=== PATIENT | female | born 1955 | race Caucasian/White ===

== ENCOUNTER → 2017-06-12 | Outpatient (CLI) | payer OTHER ==
--- NOTE | 2017-06-12 22:07 | Diagnostic Imaging Report ---
Bilateral diagnostic mammogram. INDICATION: Lump in the right breast inferior aspect. The current study was also evaluated with a Computer Aided Detection (CAD) system. Tomography was also performed. Comparison exam reviewed on 12/14/15. FINDINGS: The breasts are composed of scattered fibroglandular densities. Occasional benign-appearing calcifications are seen. There is no mass, architectural distortion or suspicious cluster of calcification. The area marked for palpable lump demonstrate no definite underlying abnormality. IMPRESSION: No mammographic evidence of malignancy. Ultrasound evaluation is pending. ACR BI-RADS Category 0: Incomplete. (Needs additional imaging evaluation). Result letter will be mailed to the patient. Note: At least 10% of breast cancer is not imaged by mammography. Dictated by: Dictated on workstation # [id number]
--- NOTE | 2017-06-12 22:10 | Diagnostic Imaging Report ---
Right breast ultrasound. INDICATION: Right breast lump. FINDINGS: The right breast lump area around 6 o'clock zone is scanned with no underlying abnormality seen. IMPRESSION: Negative study. Clinical followup of the palpable area is recommended. ACR BI-RADS Category 1: Negative. Dictated by: Dictated on workstation # [id number]
== END ==
LOC: RAD 08:36
PROVIDERS: ATTEND Nurse Practitioner Family
DX: Z12.31 Encounter for screening mammogram for malignant neoplasm of breast (principal); N63.10 Unspecified lump in the right breast, unspecified quadrant
CPT/HCPCS: 77066

== ENCOUNTER → 2017-09-24 | Outpatient (CLI) | payer OTHER ==
[~2017-09-24] MED LIST: IOHEXOL 350 MG/ML 100 ML (OMNIPAQUE 350) VIAL IV ONE; NS 250 ML (IVPB) BAG IV ONE
--- NOTE | 2017-09-24 15:03 | Diagnostic Imaging Report ---
PROCEDURE: CT abdomen and pelvis with contrast. TECHNIQUE: Multiple contiguous axial images were obtained through the abdomen and pelvis after administration of intravenous contrast. INDICATION: Abdominal cramping and diarrhea. No prior studies are available for comparison. FINDINGS: Imaging through the lung bases does demonstrate some atelectasis or scarring in the right middle lobe and lingula. The lower lobes are clear. The liver demonstrates generalized low density consistent with hepatic steatosis. No discrete liver mass is identified. Gallbladder does contain probable small stones or sludge. The pancreas and spleen are unremarkable. No adrenal mass is identified. There is a tiny hyperdensity in the upper pole of the right kidney suggestive of a nonobstructing calculus. There are also small low densities within bilateral kidneys consistent with cysts. Aorta is calcified but nonaneurysmal. There are diverticuli throughout the colon, most significant in the descending colon and sigmoid. No findings to suggest acute diverticulitis are identified. There are some moderately dilated and fluid-filled small bowel loops in the left abdomen and pelvis. There is a long segment of significant circumferential wall thickening involving small bowel loops in the left abdomen. There is perienteric inflammatory stranding present as well. The features are consistent with a nonspecific enteritis. There may be a component of mild bowel obstruction. No free fluid is seen. There is no abscess formation. No pneumoperitoneum is identified. The bladder is unremarkable. No abdominal or pelvic lymphadenopathy is identified. IMPRESSION: 1. Hepatic steatosis. 2. Long segment of circumferential wall thickening involving small bowel loops in the left abdomen with adjacent inflammatory stranding. Small bowel loops proximal to this are moderately dilated and fluid-filled. Features are consistent with nonspecific enteritis with perhaps component of small bowel obstruction. No abscess formation or free air is identified. Results were discussed with Dr. Michelle Lopez prior to this dictation. Dictated by: Dictated on workstation # [id number]
== END ==
LOC: RAD 13:51
PROVIDERS: ATTEND Family Medicine
DX: K76.0 Fatty (change of) liver, not elsewhere classified (principal); K63.89 Other specified diseases of intestine
CPT/HCPCS: 74177

== ENCOUNTER 2017-12-26 12:45 | Outpatient (CLI) | payer SELFPAY ==
[~2017-12-26] VITALS: Ht 160 cm; Wt 68.0 kg
[2017-12-26] MEDS ORDERED: LORA0.5T PO (12:54)
[2017-12-26] MEDS ORDERED: DICY20TA10 PO (12:54)
[2017-12-26] MEDS ORDERED: ALPR0.5T7 PO (12:54)
[2017-12-26] MEDS ORDERED: RT-ALBUINH IH (12:54)
[2017-12-26] MEDS ORDERED: AMIT25TA9 PO (12:54)
[2017-12-26] MEDS ORDERED: FLUO40CA PO (12:54)
== END 2017-12-26 12:59 ==
LOC: PREOP 12:45
PROVIDERS: ATTEND Surgery
DX: Z01.818 Encounter for other preprocedural examination (principal); K21.9 Gastro-esophageal reflux disease without esophagitis; R19.7 Diarrhea, unspecified

== ENCOUNTER 2017-12-30 12:48 | Day surgery (SDC) | payer OTHER ==
[~2017-12-30] VITALS: Ht 160 cm; Wt 68.0 kg
[~2017-12-30 12:48] MED LIST changes: +ALPR0.5T7 PO; +AMIT25TA9 PO; +DICY20TA10 PO; +FLUO40CA PO; -IOHEXOL 350 MG/ML 100 ML (OMNIPAQUE 350) VIAL IV ONE; +LORA0.5T PO; -NS 250 ML (IVPB) BAG IV ONE; +RT-ALBUINH IH
--- OUTSIDE RECORDS SUMMARY | 2017-12-30 12:52 | XMS REPORT ---
Author Author STEPHANIE ANDERSON [facility] Address [address] [place] [address] Care Team Providers Care Abatement Worker Name Role Phone STEPHANIE ANDERSON Unavailable PROBLEMS Type Condition ICD9-CM Code [id number] Code Onset Dates Condition Status SNOMED Code Problem Irritable bowel syndrome, unspecified type K58.9 Active 44624599 Problem Moderate episode of recurrent major depressive disorder F33.1 Active 79653281 Problem Moderate single current episode of major depressive disorder F32.1 Active 77171396 Problem Stress incontinence N39.3 Active 51598457 Problem Other iron deficiency anemia D50.8 Active 94057213 Problem Mixed simple and mucopurulent chronic bronchitis J41.8 Active 177796777 Problem Esophageal dysphagia R13.10 Active 25975740 Problem Tobacco use Z72.0 Active 004799383 Problem 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 Active 587587552 Problem Primary insomnia F51.01 Active 3833377 Problem Anxiety F41.9 Active 70793770 Problem COPD (chronic obstructive pulmonary disease) with chronic bronchitis J44.9 Active 418007691 ALLERGIES No Known Allergies ENCOUNTERS Encounter Location Date Diagnosis [facility] [address] [address] November, Anxiety F41.9 and LLQ abdominal pain R10.32 [facility] [id number] [place] [address] Oct, Anxiety F41.9 [facility] [id number] [place] [address] Oct, Allergic contact dermatitis, unspecified trigger L23.9 [facility] [address], [place] [address] Sep, [facility] [id number] [address] Sep, [facility] [id number] [place] [address] Aug, COPD (chronic obstructive pulmonary disease) with chronic bronchitis J44.9 ; Left lower quadrant pain R10.32 ; Anxiety F41.9 and Tobacco use Z72.0 [facility] [id number] [place] [address] Aug, [facility] [id number] [place] [address] 29832- 6866 Aug, [facility] [id number] [place] [address] 75551- 6631 Aug, Generalized abdominal pain R10.84 and Esophageal dysphagia R13.10 [facility] [id number] [place] [address] 60606- 4292 Jul, [facility] [id number] [place] [address] 14833- 5190 Jun, COPD (chronic obstructive pulmonary disease) with chronic bronchitis J44.9 [facility] [id number] [place] [address] 78790- 4034 May, [facility] [place] [facility] [id number] [place] [id number] May, Dental examination Z01.20 [facility] [address] [place] [address] 96790- 8200 Apr, Breast cancer screening Z12.31 [facility] [address] [place] [address] 87699- 3346 Apr, Dental examination Z01.20 [facility] [id number] [place] [address] 83681- 4073 Apr, COPD (chronic obstructive pulmonary disease) with chronic bronchitis J44.9 ; Screening for breast cancer Z12.31 ; Moderate episode of recurrent major depressive disorder F33.1 ; Primary insomnia F51.01 ; 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 ; Other specified disorders of teeth and supporting structures K08.89 and Encounter for immunization Z23 [place] [address] [address] Jan, Mixed simple and mucopurulent chronic bronchitis J41.8 ; Other iron deficiency anemia D50.8 ; Irritable bowel syndrome, unspecified type K58.9 and Stress incontinence N39.3 [place] [address] [address] 03 Jan, 2017 Mixed simple and mucopurulent chronic bronchitis J41.8 ; Stress incontinence N39.3 ; Moderate single current episode of major depressive disorder F32.1 ; Irritable bowel syndrome, unspecified type K58.9 ; Other iron deficiency anemia D50.8 and Chronic intractable headache, unspecified headache type R51 [place] [address] [address] Dec, [place] [address] [address] Dec, [place] [address] [address] 13 Dec, 2016 Acute left-sided thoracic back pain M54.6 ; Rib pain on left side R07.81 and Closed fracture of one rib of left side, initial encounter S22.32XA IMMUNIZATIONS No Known Immunizations SOCIAL HISTORY Never Assessed REASON FOR VISIT Breast exam and [facility] Activity Details Follow Up 1 Year, sooner prn Reason: VITAL SIGNS Height 62.5 in 2017-05-27 Weight 145.2 lbs 2017-05-27 Temperature 98.1 degrees Fahrenheit 2017-05-27 Heart Rate 76 bpm 2017-05-27 Respiratory Rate 20 2017-05-27 BMI 26.13 kg/m2 2017-05-27 Blood pressure systolic 140 mmHg 2017-05-27 Blood pressure diastolic 84 mmHg 2017-05-27 MEDICATIONS Medication Instructions Dosage Frequency Start Date End Date Duration Status Xanax 1 MG Orally TID PRN 1 tablet Active Amitriptyline HCl 25 MG Orally Once a day 1 tablet 24h Jan, 90 days Active Fluoxetine HCl 40 MG Orally Once a day 1 capsule 24h Active Docusate Sodium Active Proventil HFA 108 (90 Base) MCG/ACT Inhalation every 4 hrs 2 puffs as needed 4h Active Dicyclomine HCl 20 mg Orally Four times a day 1 tablet 6h Active RESULTS Name Result Date Reference Range Mammogram Dx, Bilateral 2017-06-12 PROCEDURES No Known procedures INSTRUCTIONS MEDICATIONS ADMINISTERED No Known Medications MEDICAL (GENERAL) HISTORY Type Description Date Medical History Depression Medical History Anxiety Medical History COPD Surgical History Hiatal hernia repair 2013 Surgical History hysterectomy, laparoscopically assisted complete 2013 Hospitalization History past surgery/child
--- OUTSIDE RECORDS SUMMARY | 2017-12-30 12:52 | XMS REPORT ---
Author Author GUILLERMO Block Organization [facility] Address [address] [place] [address] Care Team Providers Care Wood Model Maker Name Role Phone Mckayla GUILLERMO Unavailable PROBLEMS Type Condition ICD9-CM Code [id number] Code Onset Dates Condition Status SNOMED Code Problem Irritable bowel syndrome, unspecified type K58.9 Active 50043360 Problem Moderate episode of recurrent major depressive disorder F33.1 Active 70684902 Problem Moderate single current episode of major depressive disorder F32.1 Active 22129900 Problem Stress incontinence N39.3 Active 10268571 Problem Other iron deficiency anemia D50.8 Active 79679840 Problem Mixed simple and mucopurulent chronic bronchitis J41.8 Active 856081071 Problem Esophageal dysphagia R13.10 Active 21521371 Problem Tobacco use Z72.0 Active 238032265 Problem 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 Active 625870572 Problem Primary insomnia F51.01 Active 7938759 Problem Anxiety F41.9 Active 66828943 Problem COPD (chronic obstructive pulmonary disease) with chronic bronchitis J44.9 Active 523686071 ALLERGIES No Information ENCOUNTERS Encounter Location Date Diagnosis [facility] [address] [place] [address] Sep, [facility] [address] [place] [address] 50035- 7[address] Sep, [facility] [id number] [place] [address] 50974[address] Aug, COPD (chronic obstructive pulmonary disease) with chronic bronchitis J44.9 ; Left lower quadrant pain R10.32 ; Anxiety F41.9 and Tobacco use Z72.0 [facility] [address] [place] [address] 29273- [address] Aug, [facility] [id number] [place] [address] 89528- 40[address] Aug, [facility] [id number] [place] [address] 54132- 97[address] Aug, Generalized abdominal pain R10.84 and Esophageal dysphagia R13.10 [place] [address] [address] Jul, [facility] [id number] [place] [address] 93828- [address]689 Jun, COPD (chronic obstructive pulmonary disease) with chronic bronchitis J44.9 [place] [id number] [place] [address] 31751- [address] May, [facility] [address] [id number] May, Dental examination Z01.20 [place] [address] [address]- [address] Apr, Breast cancer screening Z12.31 [place] [id number] [place] [address] 08087- 6631 Apr, Dental examination Z01.20 [place] [id number] [place] [address] 82644- 4761 24 Apr, 2017 COPD (chronic obstructive pulmonary disease) with chronic bronchitis J44.9 ; Screening for breast cancer Z12.31 ; Moderate episode of recurrent major depressive disorder F33.1 ; Primary insomnia F51.01 ; 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 ; Other specified disorders of teeth and supporting structures K08.89 and Encounter for immunization Z23 [place] [id number] [place] [address] Jan, Mixed simple and mucopurulent chronic bronchitis J41.8 ; Other iron deficiency anemia D50.8 ; Irritable bowel syndrome, unspecified type K58.9 and Stress incontinence N39.3 [place] [address] [address] 03 Jan, 2017 Mixed simple and mucopurulent chronic bronchitis J41.8 ; Stress incontinence N39.3 ; Moderate single current episode of major depressive disorder F32.1 ; Irritable bowel syndrome, unspecified type K58.9 ; Other iron deficiency anemia D50.8 and Chronic intractable headache, unspecified headache type R51 [facility] [address], [place] [address] Dec, [facility] [id number] [place] [address] 81507- [address]78 14 Dec, 2016 [place] [address] [place] [address] 94092- 67[address] 13 Dec, 2016 Acute left-sided thoracic back pain M54.6 ; Rib pain on left side R07.81 and Closed fracture of one rib of left side, initial encounter S22.32XA IMMUNIZATIONS No Known Immunizations SOCIAL HISTORY Never Assessed REASON FOR VISIT Lab (walk-in) PLAN OF CARE VITAL SIGNS MEDICATIONS Unknown Medications RESULTS Name Result Date Reference Range UA LONG DIP (IN HOUSE) 2017-01-29 Lot # [id number] Exp date 10/2017 Clarity Clear Color Yellow Odor No GLU Negative DONOVAN Negative KET Negative SG 1.010 BLO Trace-lysed pH 5.5 Protein Negative URO 0.2 NIT Negative FRANCI Negative Lot # [id number] Exp date 02/2017 PROCEDURES Procedure Date Ordered Result Body Site IRON BINDING TEST January 29, 2017 ASSAY OF IRON January 29, 2017 COMPREHEN METABOLIC PANEL January 29, 2017 COMPLETE CBC W/AUTO DIFF WBC January 29, 2017 VENIPUNCT, ROUTINE* January 29, 2017 URINALYSIS, AUTO, W/O SCOPE January 29, 2017 INSTRUCTIONS MEDICATIONS ADMINISTERED No Known Medications MEDICAL (GENERAL) HISTORY Type Description Date Medical History Depression Medical History Anxiety Medical History COPD Surgical History Hiatal hernia repair 2013 Surgical History hysterectomy, laparoscopically assisted complete 2014 Hospitalization History past surgery/child
--- OUTSIDE RECORDS SUMMARY | 2017-12-30 12:52 | XMS REPORT ---
Author Author JANES LOVELACE Organization [facility] Address [address] [place] [address] Care Team Providers Care Consumer Insights Specialist Name Role Phone JANES LOVELACE Unavailable PROBLEMS Type Condition ICD9-CM Code [id number] Code Onset Dates Condition Status SNOMED Code Problem Irritable bowel syndrome, unspecified type K58.9 Active 70313056 Problem Moderate episode of recurrent major depressive disorder F33.1 Active 88194721 Problem Moderate single current episode of major depressive disorder F32.1 Active 08466886 Problem Stress incontinence N39.3 Active 86892612 Problem Other iron deficiency anemia D50.8 Active 09976728 Problem Mixed simple and mucopurulent chronic bronchitis J41.8 Active 638095623 Problem Esophageal dysphagia R13.10 Active 07787815 Problem Tobacco use Z72.0 Active 884985075 Problem 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 Active 323663236 Problem Primary insomnia F51.01 Active 2291288 Problem Anxiety F41.9 Active 90113117 Problem COPD (chronic obstructive pulmonary disease) with chronic bronchitis J44.9 Active 245620967 ALLERGIES No Known Allergies ENCOUNTERS Encounter Location Date Diagnosis [facility] [id number] [place] [address]47[address] Oct, Anxiety F41.9 [facility] [address] [place] [address] Oct, Allergic contact dermatitis, unspecified trigger L23.9 [facility] [id number] [place] [address] 32474- 3168 Sep, [facility] [address] [place] [address] 40062- 2179 Sep, [facility] [id number] [place] [address] 93703- 4264 Aug, COPD (chronic obstructive pulmonary disease) with chronic bronchitis J44.9 ; Left lower quadrant pain R10.32 ; Anxiety F41.9 and Tobacco use Z72.0 [facility] [id number] [place] [address] 82849- [address] Aug, [facility] [id number] [place] [address] 64528- 6133 Aug, [facility] [address] [address]- [address] Aug, Generalized abdominal pain R10.84 and Esophageal dysphagia R13.10 [place] [address] [address]- [address] Jul, [place] [id number] [place] [address] 66682- 0026 Jun, COPD (chronic obstructive pulmonary disease) with chronic bronchitis J44.9 [place] [id number] [place] [address] 69646- 8811 May, [facility] [id number] [place] [phone] May, Dental examination Z01.20 [place] [id number] [place] [address] 60624- 7568 Apr, Breast cancer screening Z12.31 [place] [id number] [place] [address] 71547- 9689 Apr, Dental examination Z01.20 [place] [id number] [place] [address] 74691- 3947 24 Apr, 2017 COPD (chronic obstructive pulmonary disease) with chronic bronchitis J44.9 ; Screening for breast cancer Z12.31 ; Moderate episode of recurrent major depressive disorder F33.1 ; Primary insomnia F51.01 ; 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 ; Other specified disorders of teeth and supporting structures K08.89 and Encounter for immunization Z23 [address] [place] [address] Jan, Mixed simple and mucopurulent chronic bronchitis J41.8 ; Other iron deficiency anemia D50.8 ; Irritable bowel syndrome, unspecified type K58.9 and Stress incontinence N39.3 [place] [id number] [place] [address] 12673- 4092 Jan, Mixed simple and mucopurulent chronic bronchitis J41.8 ; Stress incontinence N39.3 ; Moderate single current episode of major depressive disorder F32.1 ; Irritable bowel syndrome, unspecified type K58.9 ; Other iron deficiency anemia D50.8 and Chronic intractable headache, unspecified headache type R51 [place] [address] [id number] [place] [address] 56611- 8864 Dec, [place] [id number] [place] [address] 15516- 1109 Dec, [place] [address] [id number] [place] [address] 54338- 9104 Dec, Acute left-sided thoracic back pain M54.6 ; Rib pain on left side R07.81 and Closed fracture of one rib of left side, initial encounter S22.32XA IMMUNIZATIONS Vaccine Route Administration Date Status FLUARIX QUAD (3 AND UP) 2016 IM Intramuscular May 20, 2017 Administered SOCIAL HISTORY Never Assessed REASON FOR VISIT TRANS CARE ----[facility] PLAN OF CARE Activity Details Follow Up 6 Months with [facility] for COPD f/u Reason: VITAL SIGNS Height 62.5 in 2017-05-20 Weight 141 lbs 2017-05-20 Temperature 98.5 degrees Fahrenheit 2017-05-20 Heart Rate 80 bpm 2017-05-20 Respiratory Rate 20 2017-05-20 BMI 25.38 kg/m2 2017-05-20 Blood pressure systolic 130 mmHg 2017-05-20 Blood pressure diastolic 74 mmHg 2017-05-20 MEDICATIONS Medication Instructions Dosage Frequency Start Date End Date Duration Status Docusate Sodium Active Vitamin B Complex Active Amitriptyline HCl 25 MG Orally Once a day 1 tablet 24h Jan, 90 days Active Albuterol Sulfate HFA 108 (90 Base) MCG/ACT Inhalation every 4 hrs 2 puffs as needed 4h Jan, 30 days Active Fluoxetine HCl 40 mg Orally Once a day 1 capsule 24h Jan, 90 days Active Xanax 0.5 MG Orally Twice a day 1 tablet 12h Jan, 28 days Active Dicyclomine HCl 20 mg Orally Four times a day 1 tablet 6h Active RESULTS No Results PROCEDURES Procedure Date Ordered Result Body Site FLUARIX QUAD (3 AND UP) 2016May 20, 2017 SINGLE IMMUNIZATION ADMIN May 20, 2017 INSTRUCTIONS MEDICATIONS ADMINISTERED No Known Medications MEDICAL (GENERAL) HISTORY Type Description Date Medical History Depression Medical History Anxiety Medical History COPD Surgical History Hiatal hernia repair 2013 Surgical History hysterectomy, laparoscopically assisted complete 2013 Hospitalization History past surgery/child
--- OUTSIDE RECORDS SUMMARY | 2017-12-30 12:52 | XMS REPORT ---
Author Author GUILLERMO Block Organization [facility] Address [address] [place] [address] Care Team Providers Care Barrel Racer Name Role Phone GUILLERMO Block Unavailable PROBLEMS Type Condition ICD9-CM Code [id number] Code Onset Dates Condition Status SNOMED Code Problem Irritable bowel syndrome, unspecified type K58.9 Active 00258562 Problem Moderate episode of recurrent major depressive disorder F33.1 Active 87551143 Problem Moderate single current episode of major depressive disorder F32.1 Active 74418010 Problem Stress incontinence N39.3 Active 33464577 Problem Other iron deficiency anemia D50.8 Active 43651598 Problem Mixed simple and mucopurulent chronic bronchitis J41.8 Active 966014449 Problem Esophageal dysphagia R13.10 Active 83775442 Problem Tobacco use Z72.0 Active 681140595 Problem 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 Active 788178605 Problem Primary insomnia F51.01 Active 7344788 Problem Anxiety F41.9 Active 38631080 Problem COPD (chronic obstructive pulmonary disease) with chronic bronchitis J44.9 Active 040264471 ALLERGIES No Known Allergies ENCOUNTERS Encounter Location Date Diagnosis [facility] [address] [place] [address] 33362- 4586 Sep, [facility] [id number] [place] [address] 75289[address] 4511 Sep, [facility] [id number] [place] [address] 26401- 5247 Aug, COPD (chronic obstructive pulmonary disease) with chronic bronchitis J44.9 ; Left lower quadrant pain R10.32 ; Anxiety F41.9 and Tobacco use Z72.0 [facility] [address] [place] [address] 50089- 9054 Aug, [facility] [id number] [place] [address] 96742- 3426 Aug, [facility] [id number] [place] [address] 91240- 0556 Aug, Generalized abdominal pain R10.84 and Esophageal dysphagia R13.10 [place] [id number] [place] [address] 85944- 3003 Jul, [place] [id number] [place] [address] 17213- 6285 Jun, COPD (chronic obstructive pulmonary disease) with chronic bronchitis J44.9 [place] [id number] [place] [address] 33013- 1745 May, [facility] [address] [id number] May, Dental examination Z01.20 [place] [id number] [place] [address] 89406- 4426 Apr, Breast cancer screening Z12.31 [place] [id number] [place] [address] 91709- 1534 Apr, Dental examination Z01.20 [place] [id number] [place] [address] 89006- 4057 24 Apr, 2017 COPD (chronic obstructive pulmonary disease) with chronic bronchitis J44.9 ; Screening for breast cancer Z12.31 ; Moderate episode of recurrent major depressive disorder F33.1 ; Primary insomnia F51.01 ; 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 ; Other specified disorders of teeth and supporting structures K08.89 and Encounter for immunization Z23 [place] [id number] [place] [address] 89766- 9317 Jan, Mixed simple and mucopurulent chronic bronchitis J41.8 ; Other iron deficiency anemia D50.8 ; Irritable bowel syndrome, unspecified type K58.9 and Stress incontinence N39.3 [place] [id number] [address] Jan, Mixed simple and mucopurulent chronic bronchitis J41.8 ; Stress incontinence N39.3 ; Moderate single current episode of major depressive disorder F32.1 ; Irritable bowel syndrome, unspecified type K58.9 ; Other iron deficiency anemia D50.8 and Chronic intractable headache, unspecified headache type R51 [place] [address] [place] [address] 46760- 2072 Dec, [place] [id number] [place] [address] 95981- 9864 Dec, [place] [address] [place] [address] 03152- 1033 Dec, Acute left-sided thoracic back pain M54.6 ; Rib pain on left side R07.81 and Closed fracture of one rib of left side, initial encounter S22.32XA IMMUNIZATIONS No Known Immunizations SOCIAL HISTORY Never Assessed REASON FOR VISIT PMH obtained. Marlo ALTMAN PLAN OF CARE VITAL SIGNS MEDICATIONS Unknown Medications RESULTS No Results PROCEDURES No Known procedures INSTRUCTIONS MEDICATIONS ADMINISTERED No Known Medications MEDICAL (GENERAL) HISTORY Type Description Date Medical History Depression Medical History Anxiety Medical History COPD Surgical History Hiatal hernia repair 2013 Surgical History hysterectomy, laparoscopically assisted complete 2013 Hospitalization History past surgery/child
--- OUTSIDE RECORDS SUMMARY | 2017-12-30 12:52 | XMS REPORT ---
Author Author GUILLERMO Block Organization [facility] Address [address] [place] [address] Care Team Providers Care Resident Care Supervisor Name Role Phone GUILLERMO Block Unavailable PROBLEMS Type Condition ICD9-CM Code MYS11-KP Code Onset Dates Condition Status SNOMED Code Problem Irritable bowel syndrome, unspecified type K58.9 Active 63763853 Problem Moderate episode of recurrent major depressive disorder F33.1 Active 46420380 Problem Moderate single current episode of major depressive disorder F32.1 Active 22032054 Problem Stress incontinence N39.3 Active 73137304 Problem Other iron deficiency anemia D50.8 Active 28305205 Problem Mixed simple and mucopurulent chronic bronchitis J41.8 Active 408920675 Problem Esophageal dysphagia R13.10 Active 24467725 Problem Tobacco use Z72.0 Active 700718607 Problem 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 Active 596653245 Problem Primary insomnia F51.01 Active 4458279 Problem Anxiety F41.9 Active 95046238 Problem COPD (chronic obstructive pulmonary disease) with chronic bronchitis J44.9 Active 682741147 ALLERGIES No Known Allergies ENCOUNTERS Encounter Location Date Diagnosis [facility] [address] [place] [address] 16018- 7444 Sep, [facility] [id number] [place] [address] 40079- 2603 Sep, [facility] [id number] [place] [address] 25191- 3882 Aug, COPD (chronic obstructive pulmonary disease) with chronic bronchitis J44.9 ; Left lower quadrant pain R10.32 ; Anxiety F41.9 and Tobacco use Z72.0 [facility] [address] [place] [address] 52336- 2729 Aug, [facility] [id number] [place] [address] 58003- 9993 Aug, [facility] [id number] [place] [address] 70863- 0149 Aug, Generalized abdominal pain R10.84 and Esophageal dysphagia R13.10 [place] [id number] [place] [address] 48020- 2292 Jul, [place] [id number] [place] [address] 81880- 8486 Jun, COPD (chronic obstructive pulmonary disease) with chronic bronchitis J44.9 [place] [id number] [place] [address] 23151- 3919 May, [facility] [address] [id number] May, Dental examination Z01.20 [place] [id number] [place] [address] 20271- 0730 Apr, Breast cancer screening Z12.31 [place] [id number] [place] [address] 91346- 3590 Apr, Dental examination Z01.20 [place] [id number] [place] [address] 35474- 1924 24 Apr, 2017 COPD (chronic obstructive pulmonary disease) with chronic bronchitis J44.9 ; Screening for breast cancer Z12.31 ; Moderate episode of recurrent major depressive disorder F33.1 ; Primary insomnia F51.01 ; 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 ; Other specified disorders of teeth and supporting structures K08.89 and Encounter for immunization Z23 [place] [id number] [place] [address] 74058- 8011 Jan, Mixed simple and mucopurulent chronic bronchitis J41.8 ; Other iron deficiency anemia D50.8 ; Irritable bowel syndrome, unspecified type K58.9 and Stress incontinence N39.3 [address] [id number] [address] Jan, Mixed simple and mucopurulent chronic bronchitis J41.8 ; Stress incontinence N39.3 ; Moderate single current episode of major depressive disorder F32.1 ; Irritable bowel syndrome, unspecified type K58.9 ; Other iron deficiency anemia D50.8 and Chronic intractable headache, unspecified headache type R51 [place] [address] [place] [address] 39415- 0256 Dec, [place] [id number] [place] [address] 46653- 0091 Dec, [place] [id number] [place] [address] 36896- 9759 Dec, Acute left-sided thoracic back pain M54.6 ; Rib pain on left side R07.81 and Closed fracture of one rib of left side, initial encounter S22.32XA IMMUNIZATIONS No Known Immunizations SOCIAL HISTORY Never Assessed REASON FOR VISIT Establish Care, PT is needing meds renewed, She also fell a month ago landing in her left side resulting in hair line fractures, PT also has days when she is bloated making her appear she is 6 months - Sujit AKINS PLAN OF CARE Activity Details Follow Up 3 Months Reason: VITAL SIGNS Height 62.5 in 2017-01-27 Weight 144.3 lbs 2017-01-27 Temperature 98.1 degrees Fahrenheit 2017-01-27 Heart Rate 98 bpm 2017-01-27 Respiratory Rate 24 2017-01-27 Oximetry 92 % 2017-01-27 BMI 25.97 kg/m2 2017-01-27 Blood pressure systolic 140 mmHg 2017-01-27 Blood pressure diastolic 72 mmHg 2017-01-27 MEDICATIONS Medication Instructions Dosage Frequency Start Date End Date Duration Status Albuterol Sulfate HFA 108 (90 Base) MCG/ACT Inhalation every 4 hrs 2 puffs as needed 4h Jan, Active Xanax 0.5 MG Orally Twice a day 1 tablet 12h Jan, Active Dicyclomine HCl 10 mg Orally Four times a day 1 capsules 6h Jan, Apr, 30 day(s) Active Fluoxetine HCl 40 mg Orally Once a day 1 capsule 24h Jan, 30 day(s) Active Oxybutynin Chloride ER 15 mg Orally Once a day 1 tablet 24h Jan, Apr, 30 day(s) Active Amitriptyline HCl 25 MG Orally Once a day 1 tablet 24h Jan, 30 day(s) Active Vitamin B Complex Active Docusate Sodium Active RESULTS No Results PROCEDURES Procedure Date Ordered Result Body Site MEASURE BLOOD OXYGEN LEVEL January 27, 2017 INSTRUCTIONS MEDICATIONS ADMINISTERED No Known Medications MEDICAL (GENERAL) HISTORY Type Description Date Medical History Depression Medical History Anxiety Medical History COPD Surgical History Hiatal hernia repair 2013 Surgical History hysterectomy, laparoscopically assisted complete 2014 Hospitalization History past surgery/child
[2017-12-30] MEDS ORDERED: LACTATED RINGERS 1,000 ML IV STA (12:54)
[2017-12-30] MEDS ORDERED: HURRICAINE EXT TUBE (BENZOCAINE) XX PRN (13:00)
[2017-12-30] MEDS ORDERED: LACTATED RINGERS 1,000 ML IV ONE (13:02)
--- NOTE | 2017-12-30 13:10 | Progress Note-Pre Operative ---
Pre-Operative Progress Note H&P Reviewed The H&P was reviewed, patient examined and no changes noted. Date Seen by Provider: Dec 30, 2017 Time Seen by Provider: 13:09 Date H&P Reviewed: Dec 30, 2017 Time H&P Reviewed: 13:09 Pre-Operative Diagnosis: LLQ abdominal pain, diarrhea, GERD TEMITOPE AJ DO Dec 30, 2017 13:10
[2017-12-30] MEDS ORDERED: RT-ALBUTEROL SULF 2.5 MG/3 ML PRE-MIX VIAL INH ONE (13:15)
[2017-12-30 13:20] VITALS: BP 132/68
[2017-12-30] MEDS ORDERED: RT-ALBUTEROL SULF 2.5 MG/3 ML PRE-MIX VIAL ONE (13:27)
[2017-12-30] MEDS ORDERED: PROPOFOL INJECTION 50 ML IV ONE ×2 (13:59→14:24)
[2017-12-30] MEDS ORDERED: PANT40TA2 PO (15:11)
--- NOTE | 2017-12-30 15:11 | Progress Note-Post Operative ---
Post-Operative Progess Note Surgeon (s)/Rv Repair Technician (s) Surgeon TEMITOPE AJ DO Rv Repair Technician: na Pre-Operative Diagnosis LLQ abdominal pain, diarrhea, GERD Post-Operative Diagnosis gastritis, hiatal hernia, reflux esophagitis, cecal polyp,sigmoid polyp, rectal polyp, random cold biopsies Procedure & Operative Findings Date of Procedure 12/30/17 Procedure Performed/Findings egd c biopsies and colonoscopy with cold biopsies and hot bx polypectomy x 3 Anesthesia Type per die sinking machine operator Estimated Blood Loss Estimated blood loss (mL): none Specimens/Packing Specimens Removed antrum, ge, cecum,sigmoid and rectal polyp, random colon TEMITOPE AJ DO Dec 30, 2017 15:11
--- NOTE | 2017-12-30 15:12 | Discharge Inst-Simple/Standard ---
Discharge Inst-Standard Discharge Medications New, Converted or Re-Newed RX: Transmitted to Pharmacy Patient Instructions/Follow Up Plan of Care/Instructions/FU: 2 - 3 weeks david Activity as Tolerated: Yes Discharge Diet: Regular Diet TEMITOPE AJ DO Dec 30, 2017 15:12
[2017-12-30] MEDS ORDERED: HURRICAINE EXT TUBE (BENZOCAINE) ONE (15:17)
[2017-12-30 15:25] VITALS: BP 131/65
[2017-12-30 15:50] VITALS: BP 128/70
[2017-12-30 15:56] VITALS: BP 128/70
--- NOTE | 2017-12-30 17:15 | Anesthesia-General Post-Op ---
MAC Patient Condition Mental Status/LOC: Same as Preop Cardiovascular: Satisfactory Nausea/Vomiting: Absent Respiratory: Satisfactory Pain: Controlled Complications: Absent Post Op Complications Complications None Follow Up Care/Instructions Patient Instructions None needed. Anesthesiology Discharge Order Discharge Order Patient is doing well, no complaints, stable vital signs, no apparent adverse anesthesia problems. No complications reported per nursing. CIARRA VICK CRNA Dec 30, 2017 17:15
--- NOTE | 2017-12-30 23:56 | OPERATIVE REPORT ---
DATE OF SERVICE: 12/30/2017 PREOPERATIVE DIAGNOSES: Left lower quadrant abdominal pain, diarrhea, gastroesophageal reflux disease. POSTOPERATIVE DIAGNOSES: Gastritis, hiatal hernia, reflux esophagitis, cecal polyp, sigmoid polyp, rectal polyp, random cold biopsies. PROCEDURE: EGD with biopsies and colonoscopy with random cold biopsies and hot biopsy polypectomy x3. SURGEON: Temitope Bourgeois DO ANESTHESIA: Per SOLAR MANUFACTURER'S REPRESENTATIVE. ESTIMATED BLOOD LOSS: None. COMPLICATIONS: None. INDICATIONS: The patient is a 62-year-old female who was found to have a segment of enteritis by CT scan, where she has been having diarrhea and left lower quadrant abdominal pain. She was recommended to have EGD and colonoscopy for further evaluation. She understands risks and benefits of procedure and wished to proceed with procedure. Consent was signed in the chart. PROCEDURE: The patient was taken to the endoscopy suite, placed in left lateral recumbent position. Timeout was performed. Scope was inserted in mouth, down the esophagus, stomach and into the duodenum without difficulty. There were no polyps, mass or ulcerations within the duodenum. Scope was slowly retracted back into the stomach, which had some erythematous changes. Biopsy of the antrum was obtained. Scope was retroflexed, noting hiatal hernia. No other pathology was noted. Scope was returned to its normal position, slowly withdrawn to the distal esophagus, which appearance of some reflux esophagitis. Biopsies of the GE junction were obtained. Scope was slowly retracted back to completely remove, noting no other pathology. Digital rectal exam was performed. There were no palpable polyps, mass or ulcerations. She does have some fairly significant internal hemorrhoids. The scope was inserted into the rectum and advanced all the way to the cecum with minimal difficulty. Prep was adequate. At the ileocecal valve and the cecum, a small polyp was present, which hot biopsy polypectomy was performed. The ileocecal valve had little bit of different appearance cold biopsy was obtained as well. The scope was intubated through the ileocecal valve and the terminal ileum had a normal appearance. No polyps, mass or ulcerations. The scope was pulled back into the cecum and continued to be slowly retracted back. There were no polyps, mass or ulcerations within the ascending, transverse and descending colon. As the scope was being retracted, random cold biopsies were obtained. Another polyp was present within the sigmoid colon, which hot biopsy polypectomy was performed. Scope was continuously retracted back into the rectum, where another polyp was present, which hot biopsy polypectomy was performed. Scope was also retroflexed noting the internal hemorrhoids. Scope was returned to its normal position, slowly withdrawn until completely removed. The patient tolerated the procedure well without any complications. She was taken to recovery room in stable condition. RECOMMENDATIONS: The patient will be started on Protonix 40 mg daily. She will follow up in 2 to 3 weeks to discuss pathology and see how her symptoms are doing at that time. The patient will need repeat colonoscopy in 5 years. If she has any problems prior to that, she should be reevaluated at that time. Would also consider HET treatment for hemorrhoids. Job ID: [id number] DocumentID: [id number] Dictated Date: 12/30/2017 15:17:32 Loader Unloader Date: 12/30/2017 23:55:38 Dictated By: TEMITOPE BOURGEOIS DO
== END 2017-12-30 16:00 | disposition home or self-care (01) ==
LOC: ENDO 12:48
PROVIDERS: ATTEND Surgery
DX: D12.0 Benign neoplasm of cecum (principal); K62.1 Rectal polyp; K63.5 Polyp of colon; K21.0 Gastro-esophageal reflux disease with esophagitis; K29.50 Unspecified chronic gastritis without bleeding; K44.9 Diaphragmatic hernia without obstruction or gangrene; K22.70 Barrett's esophagus without dysplasia; F17.210 Nicotine dependence, cigarettes, uncomplicated; J44.9 Chronic obstructive pulmonary disease, unspecified; F32.9 Major depressive disorder, single episode, unspecified; F41.9 Anxiety disorder, unspecified; H40.9 Unspecified glaucoma; Z79.899 Other long term (current) drug therapy
CPT/HCPCS: 88305; 88342; 94640

== ENCOUNTER 2019-02-25 12:00 | Outpatient (CLI) | payer MEDICARE, OTHER ==
[~2019-02-25] VITALS: Ht 160 cm; Wt 68.0 kg
[~2019-02-25 12:00] MED LIST changes: +PANT40TA2 PO
[2019-02-25] MEDS ORDERED: L.AC1CAP6 PO (12:06)
== END 2019-02-25 14:30 | disposition home or self-care (01) ==
LOC: PREOP 12:00
PROVIDERS: ATTEND Surgery
DX: Z01.818 Encounter for other preprocedural examination (principal)

== ENCOUNTER 2019-03-02 12:06 | Day surgery (SDC) | payer MEDICARE, OTHER ==
[~2019-03-02] VITALS: Ht 160 cm; Wt 68.0 kg
[~2019-03-02 12:06] MED LIST changes: +L.AC1CAP6 PO
[2019-03-02] MEDS ORDERED: LACTATED RINGERS 1,000 ML IV ONE (12:07)
--- OUTSIDE RECORDS SUMMARY | 2019-03-02 12:10 | XMS REPORT ---
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 Active 1150815727256368 Problem Other iron deficiency anemia D50.8 Active 02776678 Problem Stress incontinence N39.3 Active 18426570 Problem Moderate single current episode of major depressive disorder F32.1 Active 56348102 Problem Moderate episode of recurrent major depressive disorder F33.1 Active 50813700 Problem Primary insomnia F51.01 Active 5262017 Problem Esophageal dysphagia R13.10 Active 78133286 Problem Irritable bowel syndrome, unspecified type K58.9 Active 88342492 Problem Severe episode of recurrent major depressive disorder, without psychotic features F33.2 Active 95506253 Problem Mixed simple and mucopurulent chronic bronchitis J41.8 Active 713522362 Problem 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 Active 252748282 Problem COPD (chronic obstructive pulmonary disease) with chronic bronchitis J44.9 Active 940302440 Problem Anxiety F41.9 Active 09548209 Problem Tobacco use Z72.0 Active 843648436 ALLERGIES No Information ENCOUNTERS Encounter Location Date Diagnosis [address] [address] Dec, [address] [address] Oct, Anxiety F41.[address] [address] Sep, High risk medications (not anticoagulants) long-term use Z79.899 ; Irritable bowel syndrome, unspecified type K58.9 ; Moderate episode of recurrent major depressive disorder F33.1 and Anxiety F41.[address] [address] Sep, [address] [address] Sep, Anxiety F41.9 ; Primary insomnia F51.01 ; COPD (chronic obstructive pulmonary disease) with chronic bronchitis J44.9 ; Severe episode of recurrent major depressive disorder, without psychotic features F33.2 and Irritable bowel syndrome, unspecified type K58.9 [place] [address] [address] Jan, Anxiety F41.9 and Primary insomnia F51.01 [place] [address] [address] November, Anxiety F41.9 and LLQ abdominal pain R10.32 [place] [address] [address] Oct, Anxiety F41.9 [facility] [id number] [place] [address] Oct, Allergic contact dermatitis, unspecified trigger L23.9 [place] [address] [address] Sep, [place] [id number] [place] [address] Sep, [facility] [address] [address] Aug, COPD (chronic obstructive pulmonary disease) with chronic bronchitis J44.9 ; Left lower quadrant pain R10.32 ; Anxiety F41.9 and Tobacco use Z72.0 [facility] [address] [address] Aug, [facility] [id number] [place] [address] Aug, [facility] [address] [address] 12 Aug, 2017 Generalized abdominal pain R10.84 and Esophageal dysphagia R13.10 [place] [address] [place] [address] Jul, [place] [id number] [place] [address] Jun, COPD (chronic obstructive pulmonary disease) with chronic bronchitis J44.9 [place] [id number] [place] [address] May, [facility] [id number] [place] [id number] May, Dental examination Z01.20 [place] [id number] [place] [address] Apr, Breast cancer screening Z12.31 [place] [id number] [place] [address] Apr, Dental examination Z01.20 [place] [id number] [place] [address] 24 Apr, 2017 COPD (chronic obstructive pulmonary disease) with chronic bronchitis J44.9 ; Screening for breast cancer Z12.31 ; Moderate episode of recurrent major depressive disorder F33.1 ; Primary insomnia F51.01 ; 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 ; Other specified disorders of teeth and supporting structures K08.89 and Encounter for immunization Z23 [address] [place] [address] Jan, Mixed simple and mucopurulent chronic bronchitis J41.8 ; Other iron deficiency anemia D50.8 ; Irritable bowel syndrome, unspecified type K58.9 and Stress incontinence N39.3 [address] [place] [address] Jan, Mixed simple and mucopurulent chronic bronchitis J41.8 ; Stress incontinence N39.3 ; Moderate single current episode of major depressive disorder F32.1 ; Irritable bowel syndrome, unspecified type K58.9 ; Other iron deficiency anemia D50.8 and Chronic intractable headache, unspecified headache type R51 [facility] [id number] [address] Dec, [facility] [address] [address] Dec, [place] [address] [address] Dec, Acute left-sided thoracic back pain M54.6 ; Rib pain on left side R07.81 and Closed fracture of one rib of left side, initial encounter S22.32XA IMMUNIZATIONS No Known Immunizations SOCIAL HISTORY Never Assessed REASON FOR VISIT Controlled med PLAN OF CARE VITAL SIGNS MEDICATIONS Unknown Medications RESULTS No Results PROCEDURES No Known procedures INSTRUCTIONS MEDICATIONS ADMINISTERED No Known Medications MEDICAL (GENERAL) HISTORY Type Description Date Medical History Depression Medical History Anxiety Medical History COPD Surgical History Hiatal hernia repair 2013 Surgical History hysterectomy, laparoscopically assisted complete 2014 Hospitalization History past surgery/child
--- OUTSIDE RECORDS SUMMARY | 2019-03-02 12:10 | XMS REPORT ---
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 Active [id number] Problem Stress incontinence N39.3 Active 64350482 Problem Other iron deficiency anemia D50.8 Active 78645106 Problem Mixed simple and mucopurulent chronic bronchitis J41.8 Active 332254535 Problem Esophageal dysphagia R13.10 Active 26908386 Problem Tobacco use Z72.0 Active 600453171 Problem 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 Active 413005976 Problem Primary insomnia F51.01 Active 9120976 Problem Anxiety F41.9 Active 07171774 Problem COPD (chronic obstructive pulmonary disease) with chronic bronchitis J44.9 Active 083397029 ALLERGIES No Information ENCOUNTERS Encounter Location Date Diagnosis [facility] [id number] [place] [address] Jan, Anxiety F41.9 and Primary insomnia F51.01 [facility] [address] [place] [address] November, Anxiety F41.9 and LLQ abdominal pain R10.32 [facility] [address] [place] [address] Oct, Anxiety F41.9 [facility] [address] [place] [address] Oct, Allergic contact dermatitis, unspecified trigger L23.9 [facility] [address] [place] [id number] [place] [address] Sep, [facility] [id number] [place] [address] Sep, [facility] [id number] [place] [address] Aug, COPD (chronic obstructive pulmonary disease) with chronic bronchitis J44.9 ; Left lower quadrant pain R10.32 ; Anxiety F41.9 and Tobacco use Z72.0 [facility] [id number] [place] [address] Aug, [facility] [id number] [place] [address] Aug, [facility] [id number] [place] [address] Aug, Generalized abdominal pain R10.84 and Esophageal dysphagia R13.10 [facility] [id number] [place] [address] Jul, [facility] [id number] [place] [address] Jun, COPD (chronic obstructive pulmonary disease) with chronic bronchitis J44.9 [facility] [id number] [place] [address] May, [facility] [address] [place] [phone] May, Dental examination Z01.20 [facility] [id number] [place] [address] Apr, Breast cancer screening Z12.31 [facility] [address] [place] [address] 24 Apr, 2017 Dental examination Z01.20 [facility] [address] [place] [address] Apr, COPD (chronic obstructive pulmonary disease) with chronic bronchitis J44.9 ; Screening for breast cancer Z12.31 ; Moderate episode of recurrent major depressive disorder F33.1 ; Primary insomnia F51.01 ; 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 ; Other specified disorders of teeth and supporting structures K08.89 and Encounter for immunization Z23 [place] [address] [address] Jan, Mixed simple and mucopurulent chronic bronchitis J41.8 ; Other iron deficiency anemia D50.8 ; Irritable bowel syndrome, unspecified type K58.9 and Stress incontinence N39.3 [place] [address] [address] Jan, Mixed simple and mucopurulent chronic bronchitis J41.8 ; Stress incontinence N39.3 ; Moderate single current episode of major depressive disorder F32.1 ; Irritable bowel syndrome, unspecified type K58.9 ; Other iron deficiency anemia D50.8 and Chronic intractable headache, unspecified headache type R51 [place] [address] [address] Dec, [place] [address] [address] Dec, [place] [address] [address] Dec, Acute left-sided thoracic back pain M54.6 ; Rib pain on left side R07.81 and Closed fracture of one rib of left side, initial encounter S22.32XA IMMUNIZATIONS No Known Immunizations SOCIAL HISTORY Never Assessed REASON FOR VISIT Controlled/refill request PLAN OF CARE VITAL SIGNS MEDICATIONS Medication Instructions Dosage Frequency Start Date End Date Duration Status Proventil HFA 108 (90 Base) MCG/ACT Inhalation every 4 hrs 2 puffs as needed 4h Active Xanax 0.5 MG Orally BID,PRN 1 tablet 28 days Active Fluoxetine HCl 40 mg Orally Once a day 1 capsule 24h 90 days Active Amitriptyline HCl 25 MG Orally Once a day 1 tablet 24h 03 Brennen, 2017 90 days Active Dicyclomine HCl 20 mg TAKE ONE TABLET BY MOUTH FOUR TIMES DAILY 90 Active RESULTS No Results PROCEDURES No Known procedures INSTRUCTIONS MEDICATIONS ADMINISTERED No Known Medications MEDICAL (GENERAL) HISTORY Type Description Date Medical History Depression Medical History Anxiety Medical History COPD Surgical History Hiatal hernia repair 2013 Surgical History hysterectomy, laparoscopically assisted complete 2013 Hospitalization History past surgery/child
--- OUTSIDE RECORDS SUMMARY | 2019-03-02 12:10 | XMS REPORT ---
Author Author JANES LOVELACE Organization [facility] Address [address] [place] [address] Care Team Providers Care Laborer Heading Name Role Phone JANES LOVELACE Unavailable PROBLEMS Type Condition ICD9-CM Code ICM61-RS Code Onset Dates Condition Status SNOMED Code Problem Irritable bowel syndrome, unspecified type K58.9 Active 91190351 Problem Moderate episode of recurrent major depressive disorder F33.1 Active 25291613 Problem Moderate single current episode of major depressive disorder F32.1 Active 96510485 Problem Stress incontinence N39.3 Active 58951970 Problem Other iron deficiency anemia D50.8 Active 07813900 Problem Mixed simple and mucopurulent chronic bronchitis J41.8 Active 136610175 Problem Esophageal dysphagia R13.10 Active 55758120 Problem Tobacco use Z72.0 Active 284296625 Problem 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 Active 002721177 Problem Primary insomnia F51.01 Active 9701077 Problem Anxiety F41.9 Active 73001246 Problem COPD (chronic obstructive pulmonary disease) with chronic bronchitis J44.9 Active 582923266 ALLERGIES No Known Allergies ENCOUNTERS Encounter Location Date Diagnosis [facility] [address] [place] [address] Jan, Anxiety F41.9 and Primary insomnia F51.01 [facility] [address] [id number] [place] [address] November, Anxiety F41.9 and LLQ abdominal pain R10.32 [facility] [id number] [place] [address] Oct, Anxiety F41.9 [facility] [address] [place] [address] Oct, Allergic contact dermatitis, unspecified trigger L23.9 [facility] [address] [address] Sep, [facility] [id number] [place] [address] Sep, [facility] [address] [place] [address] Aug, COPD (chronic obstructive pulmonary disease) with chronic bronchitis J44.9 ; Left lower quadrant pain R10.32 ; Anxiety F41.9 and Tobacco use Z72.0 [facility] [id number] [place] [address] Aug, [facility] [id number] [place] [address] Aug, [facility] [id number] [place] [address] Aug, Generalized abdominal pain R10.84 and Esophageal dysphagia R13.10 [facility] [id number] [place] [address] Jul, [facility] [id number] [place] [address] Jun, COPD (chronic obstructive pulmonary disease) with chronic bronchitis J44.9 [facility] [address] [address] May, [facility] [address] [place] [phone] May, Dental examination Z01.20 [facility] [address] [address] Apr, Breast cancer screening Z12.31 [facility] [address] [place] [address] Apr, Dental examination Z01.20 [facility] [address] [place] [address] Apr, COPD (chronic obstructive pulmonary disease) with chronic bronchitis J44.9 ; Screening for breast cancer Z12.31 ; Moderate episode of recurrent major depressive disorder F33.1 ; Primary insomnia F51.01 ; 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 ; Other specified disorders of teeth and supporting structures K08.89 and Encounter for immunization Z23 [place] [address] [address] Jan, Mixed simple and mucopurulent chronic bronchitis J41.8 ; Other iron deficiency anemia D50.8 ; Irritable bowel syndrome, unspecified type K58.9 and Stress incontinence N39.3 [place] [address] [address] Jan, Mixed simple and mucopurulent chronic bronchitis J41.8 ; Stress incontinence N39.3 ; Moderate single current episode of major depressive disorder F32.1 ; Irritable bowel syndrome, unspecified type K58.9 ; Other iron deficiency anemia D50.8 and Chronic intractable headache, unspecified headache type R51 [place] [address] [address] Dec, [place] [address] [address] Dec, [place] [address] [address] 13 Dec, 2016 Acute left-sided thoracic back pain M54.6 ; Rib pain on left side R07.81 and Closed fracture of one rib of left side, initial encounter S22.32XA IMMUNIZATIONS No Known Immunizations SOCIAL HISTORY Never Assessed REASON FOR VISIT Abdominal pain, Abdominal pain has not improved. Having a normal BM every 3-4 d ays. Yu RN PLAN OF CARE Activity Details Follow Up 2 Weeks with Fernando garcia Reason: VITAL SIGNS Height 62.5 in 2017-12-15 Weight 152 lbs 2017-12-15 Temperature 98 degrees Fahrenheit 2017-12-15 Heart Rate 96 bpm 2017-12-15 Respiratory Rate 22 2017-12-15 BMI 27.36 kg/m2 2017-12-15 Blood pressure systolic 110 mmHg 2017-12-15 Blood pressure diastolic 60 mmHg 2017-12-15 MEDICATIONS Medication Instructions Dosage Frequency Start Date End Date Duration Status Amitriptyline HCl 25 MG Orally Once a day 1 tablet 24h Jan, 90 days Active Fluoxetine HCl 40 mg Orally Once a day 1 capsule 24h Active Docusate Sodium Active Dicyclomine HCl 20 mg TAKE ONE TABLET BY MOUTH FOUR TIMES DAILY 90 Active Proventil HFA 108 (90 Base) MCG/ACT Inhalation every 4 hrs 2 puffs as needed 4h Active Xanax 0.5 MG Orally BID,PRN 1 tablet 28 days Active RESULTS No Results PROCEDURES No Known procedures INSTRUCTIONS MEDICATIONS ADMINISTERED No Known Medications MEDICAL (GENERAL) HISTORY Type Description Date Medical History Depression Medical History Anxiety Medical History COPD Surgical History Hiatal hernia repair 2013 Surgical History hysterectomy, laparoscopically assisted complete 2013 Hospitalization History past surgery/child
--- OUTSIDE RECORDS SUMMARY | 2019-03-02 12:11 | XMS REPORT ---
Author Author JANES LOVELACE Organization [facility] Address [address] [place] [address] Care Team Providers Care Scorekeeper Name Role Phone JANES LOVELACE Unavailable PROBLEMS Type Condition ICD9-CM Code TNI88-FL Code Onset Dates Condition Status SNOMED Code Problem Irritable bowel syndrome, unspecified type K58.9 Active 49826462 Problem Moderate episode of recurrent major depressive disorder F33.1 Active 54037185 Problem Moderate single current episode of major depressive disorder F32.1 Active 73769257 Problem Stress incontinence N39.3 Active 04115615 Problem Other iron deficiency anemia D50.8 Active 62646920 Problem Mixed simple and mucopurulent chronic bronchitis J41.8 Active 743034695 Problem Esophageal dysphagia R13.10 Active 08665050 Problem Tobacco use Z72.0 Active 674904021 Problem 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 Active 963457897 Problem Primary insomnia F51.01 Active 5227744 Problem Anxiety F41.9 Active 66780725 Problem COPD (chronic obstructive pulmonary disease) with chronic bronchitis J44.9 Active 975386354 ALLERGIES No Information ENCOUNTERS Encounter Location Date Diagnosis [facility] [address] [id number] [place] [address] Jan, Anxiety F41.9 and Primary insomnia F51.01 [facility] [address] [id number] [place] [address] November, Anxiety F41.9 and LLQ abdominal pain R10.32 [facility] [address] [id number] [place] [address] Oct, Anxiety F41.9 [facility] [address] [place] [address] Oct, Allergic contact dermatitis, unspecified trigger L23.9 [facility] [address] [address] Sep, [facility] [address] [id number] [place] [address] Sep, [facility] [address] [address] Aug, COPD (chronic obstructive pulmonary disease) with chronic bronchitis J44.9 ; Left lower quadrant pain R10.32 ; Anxiety F41.9 and Tobacco use Z72.0 [facility] [id number] [place] [address] Aug, [facility] [address] [place] [address] [id number] [place] [address] Aug, [facility] [id number] [place] [address] Aug, Generalized abdominal pain R10.84 and Esophageal dysphagia R13.10 [facility] [address] [place] [address] Jul, [facility] [address] [address] [id number] [place] [address] Jun, COPD (chronic obstructive pulmonary disease) with chronic bronchitis J44.9 [facility] [address] [address] May, [facility] [address] [place] [phone] May, Dental examination Z01.20 [facility] [address] [address] Apr, Breast cancer screening Z12.31 [facility] [address] [place] [address] Apr, Dental examination Z01.20 [facility] [address] [place] [address] Apr, COPD (chronic obstructive pulmonary disease) with chronic bronchitis J44.9 ; Screening for breast cancer Z12.31 ; Moderate episode of recurrent major depressive disorder F33.1 ; Primary insomnia F51.01 ; 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 ; Other specified disorders of teeth and supporting structures K08.89 and Encounter for immunization Z23 [place] [address] [id number] [place] [address] Jan, Mixed simple and mucopurulent chronic bronchitis J41.8 ; Other iron deficiency anemia D50.8 ; Irritable bowel syndrome, unspecified type K58.9 and Stress incontinence N39.3 [place] [address] [address] Jan, Mixed simple and mucopurulent chronic bronchitis J41.8 ; Stress incontinence N39.3 ; Moderate single current episode of major depressive disorder F32.1 ; Irritable bowel syndrome, unspecified type K58.9 ; Other iron deficiency anemia D50.8 and Chronic intractable headache, unspecified headache type R51 [place] [address] [place] [id number] [place] [address] Dec, [place] [address] [address] Dec, [place] [address] [place] [id number] [place] [address] 13 Dec, 2016 Acute left-sided thoracic back pain M54.6 ; Rib pain on left side R07.81 and Closed fracture of one rib of left side, initial encounter S22.32XA IMMUNIZATIONS No Known Immunizations SOCIAL HISTORY Never Assessed REASON FOR VISIT Controlled Med Refill PLAN OF CARE VITAL SIGNS MEDICATIONS Medication Instructions Dosage Frequency Start Date End Date Duration Status Xanax 0.5 MG Orally BID,PRN 1 tablet 28 days Active Fluoxetine HCl 40 mg Orally Once a day 1 capsule 24h Active RESULTS No Results PROCEDURES No Known procedures INSTRUCTIONS MEDICATIONS ADMINISTERED No Known Medications MEDICAL (GENERAL) HISTORY Type Description Date Medical History Depression Medical History Anxiety Medical History COPD Surgical History Hiatal hernia repair 2013 Surgical History hysterectomy, laparoscopically assisted complete 2013 Hospitalization History past surgery/child
--- OUTSIDE RECORDS SUMMARY | 2019-03-02 12:11 | XMS REPORT ---
Author Author JANES LOVELACE Organization [facility] Address [address] [place] [address] Care Team Providers Care Residential Manager Name Role Phone JANES LOVELACE Unavailable PROBLEMS Type Condition ICD9-CM Code VSA05-KX Code Onset Dates Condition Status SNOMED Code Problem Irritable bowel syndrome, unspecified type K58.9 Active 09590845 Problem Moderate episode of recurrent major depressive disorder F33.1 Active 26168498 Problem Moderate single current episode of major depressive disorder F32.1 Active 96160667 Problem Stress incontinence N39.3 Active 03765628 Problem Other iron deficiency anemia D50.8 Active 28482110 Problem Mixed simple and mucopurulent chronic bronchitis J41.8 Active 096344043 Problem Esophageal dysphagia R13.10 Active 06953384 Problem Tobacco use Z72.0 Active 030585330 Problem 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 Active 106568108 Problem Primary insomnia F51.01 Active 8453716 Problem Anxiety F41.9 Active 92567343 Problem COPD (chronic obstructive pulmonary disease) with chronic bronchitis J44.9 Active 040092664 ALLERGIES No Information ENCOUNTERS Encounter Location Date Diagnosis [facility] [address] [place] [id number] [place] [address] November, Anxiety F41.9 and LLQ abdominal pain R10.32 [facility] [address] [place] [address] [id number] [place] [address] Oct, Anxiety F41.9 [facility] [id number] [place] [address] Oct, Allergic contact dermatitis, unspecified trigger L23.9 [facility] [address] [place] [address] [id number] [place] [address] Sep, [facility] [address] [place] [address] Sep, [facility] [address] [place] [address] [id number] [place] [address] Aug, COPD (chronic obstructive pulmonary disease) with chronic bronchitis J44.9 ; Left lower quadrant pain R10.32 ; Anxiety F41.9 and Tobacco use Z72.0 [place] [address] [address] Aug, [facility] [address] [address] Aug, [facility] [address] [address] Aug, Generalized abdominal pain R10.84 and Esophageal dysphagia R13.10 [place] [address] [place] [id number] [place] [address] Jul, [facility] [address] [place] [address] [id number] [place] [address] Jun, COPD (chronic obstructive pulmonary disease) with chronic bronchitis J44.9 [facility] [address] [place] [id number] [place] [address] May, [facility] [address] [id number] [place] [phone] May, Dental examination Z01.20 [facility] [address] [place] [id number] [place] [address] Apr, Breast cancer screening Z12.31 [facility] [address] [place] [id number] [place] [address] Apr, Dental examination Z01.20 [place] [address] [place] [id number] [place] [address] Apr, COPD (chronic obstructive pulmonary disease) with chronic bronchitis J44.9 ; Screening for breast cancer Z12.31 ; Moderate episode of recurrent major depressive disorder F33.1 ; Primary insomnia F51.01 ; 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 ; Other specified disorders of teeth and supporting structures K08.89 and Encounter for immunization Z23 [place] [address] [address] Jan, Mixed simple and mucopurulent chronic bronchitis J41.8 ; Other iron deficiency anemia D50.8 ; Irritable bowel syndrome, unspecified type K58.9 and Stress incontinence N39.3 [place] [address] [address] Jan, Mixed simple and mucopurulent chronic bronchitis J41.8 ; Stress incontinence N39.3 ; Moderate single current episode of major depressive disorder F32.1 ; Irritable bowel syndrome, unspecified type K58.9 ; Other iron deficiency anemia D50.8 and Chronic intractable headache, unspecified headache type R51 [address] [address] Dec, [place] [address] [address] Dec, [address] [address] Dec, Acute left-sided thoracic back pain M54.6 ; Rib pain on left side R07.81 and Closed fracture of one rib of left side, initial encounter S22.32XA IMMUNIZATIONS No Known Immunizations SOCIAL HISTORY Never Assessed REASON FOR VISIT CT scan PLAN OF CARE VITAL SIGNS MEDICATIONS No Known Medications RESULTS No Results PROCEDURES No Known procedures INSTRUCTIONS MEDICATIONS ADMINISTERED No Known Medications MEDICAL (GENERAL) HISTORY Type Description Date Medical History Depression Medical History Anxiety Medical History COPD Surgical History Hiatal hernia repair 2013 Surgical History hysterectomy, laparoscopically assisted complete 2013 Hospitalization History past surgery/child
--- OUTSIDE RECORDS SUMMARY | 2019-03-02 12:11 | XMS REPORT ---
Author Author JANES LOVELACE Organization [facility] [place] Address [address] [place] [address] Care Team Providers Care Tax Form Preparer Name Role Phone JANES LOVELACE Unavailable PROBLEMS Type Condition ICD9-CM Code [id number] Code Onset Dates Condition Status SNOMED Code Problem Irritable bowel syndrome, unspecified type K58.9 Active 53223319 Problem Moderate episode of recurrent major depressive disorder F33.1 Active 79760890 Problem Moderate single current episode of major depressive disorder F32.1 Active 09036552 Problem Stress incontinence N39.3 Active 03558828 Problem Other iron deficiency anemia D50.8 Active 18486169 Problem Mixed simple and mucopurulent chronic bronchitis J41.8 Active 965385901 Problem Esophageal dysphagia R13.10 Active 91881767 Problem Tobacco use Z72.0 Active 127652832 Problem 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 [id number] [place] [address] Oct, Allergic contact dermatitis, unspecified trigger L23.9 [facility] [place] [id number] [place] [phone] Sep, [facility] [place] [address] [place] [address] Sep, [facility] [place] [id number] [place] [address] Aug, COPD (chronic obstructive pulmonary disease) with chronic bronchitis J44.9 ; Left lower quadrant pain R10.32 ; Anxiety F41.9 and Tobacco use Z72.0 [place] [address] [address] Aug, [facility] [place] [address] [address] Aug, [facility] [place] [address] [address] Aug, Generalized abdominal pain R10.84 and Esophageal dysphagia R13.10 [place] [id number] [place] [address] Jul, [facility] [place] [id number] [place] [address] Jun, COPD (chronic obstructive pulmonary disease) with chronic bronchitis J44.9 [facility] [place] [id number] [place] [address] May, [facility] [id number] [place] [phone] May, Dental examination Z01.20 [facility] [place] [id number] [place] [address] Apr, Breast cancer screening Z12.31 [facility] [place] [id number] [place] [address] Apr, Dental examination Z01.20 [place] [id number] [place] [address] Apr, COPD (chronic obstructive pulmonary disease) with chronic bronchitis J44.9 ; Screening for breast cancer Z12.31 ; Moderate episode of recurrent major depressive disorder F33.1 ; Primary insomnia F51.01 ; 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 ; Other specified disorders of teeth and supporting structures K08.89 and Encounter for immunization Z23 [place] [address] [address] Jan, Mixed simple and mucopurulent chronic bronchitis J41.8 ; Other iron deficiency anemia D50.8 ; Irritable bowel syndrome, unspecified type K58.9 and Stress incontinence N39.3 [place] [address] [address] Jan, Mixed simple and mucopurulent chronic bronchitis J41.8 ; Stress incontinence N39.3 ; Moderate single current episode of major depressive disorder F32.1 ; Irritable bowel syndrome, unspecified type K58.9 ; Other iron deficiency anemia D50.8 and Chronic intractable headache, unspecified headache type R51 [address] [address] Dec, [place] [address] [address] Dec, [address] [address] Dec, Acute left-sided thoracic back pain M54.6 ; Rib pain on left side R07.81 and Closed fracture of one rib of left side, initial encounter S22.32XA IMMUNIZATIONS No Known Immunizations SOCIAL HISTORY Never Assessed REASON FOR VISIT Phone call PLAN OF CARE VITAL SIGNS MEDICATIONS No Known Medications RESULTS No Results PROCEDURES No Known procedures INSTRUCTIONS MEDICATIONS ADMINISTERED No Known Medications MEDICAL (GENERAL) HISTORY Type Description Date Medical History Depression Medical History Anxiety Medical History COPD Surgical History Hiatal hernia repair 2013 Surgical History hysterectomy, laparoscopically assisted complete 2013 Hospitalization History past surgery/child
--- OUTSIDE RECORDS SUMMARY | 2019-03-02 12:11 | XMS REPORT ---
Author Author MORENITA WYATT [facility] Address [address] [place] [address] Care Team Providers Care Web Development Director Name Role Phone MORENITA WYATT Unavailable PROBLEMS Type Condition ICD9-CM Code ABN51-MS Code Onset Dates Condition Status SNOMED Code Problem Irritable bowel syndrome, unspecified type K58.9 Active 86438451 Problem Moderate episode of recurrent major depressive disorder F33.1 Active 90785343 Problem Moderate single current episode of major depressive disorder F32.1 Active 24581313 Problem Stress incontinence N39.3 Active 02166900 Problem Other iron deficiency anemia D50.8 Active 61750981 Problem Mixed simple and mucopurulent chronic bronchitis J41.8 Active 497461399 Problem Esophageal dysphagia R13.10 Active 44005807 Problem Tobacco use Z72.0 Active 485670744 Problem 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 Active 767301726 Problem Primary insomnia F51.01 Active 6162759 Problem Anxiety F41.9 Active 33617243 Problem COPD (chronic obstructive pulmonary disease) with chronic bronchitis J44.9 Active 175986965 ALLERGIES No Known Allergies ENCOUNTERS Encounter Location Date Diagnosis [facility] [address] [place] [address] Jan, Anxiety F41.9 and Primary insomnia F51.01 [facility] [address] [place] [address] November, Anxiety F41.9 and LLQ abdominal pain R10.32 [facility] [address] [place] [address] Oct, Anxiety F41.9 [facility] [id number] [address] Oct, Allergic contact dermatitis, unspecified trigger L23.9 [facility] [id number] [address] Sep, [facility] [id number] [place] [address] Sep, [facility] [id number] [place] [address] Aug, COPD (chronic obstructive pulmonary disease) with chronic bronchitis J44.9 ; Left lower quadrant pain R10.32 ; Anxiety F41.9 and Tobacco use Z72.0 [facility] [id number] [place] [address] Aug, [facility] [id number] [place] [address] Aug, [facility] [id number] [place] [address] Aug, Generalized abdominal pain R10.84 and Esophageal dysphagia R13.10 [facility] [id number] [place] [address] Jul, [facility] [id number] [place] [address] Jun, COPD (chronic obstructive pulmonary disease) with chronic bronchitis J44.9 [facility] [address] [place] [address] May, [facility] [address] [place] [phone] May, Dental examination Z01.20 [facility] [address] [place] [address] Apr, Breast cancer screening Z12.31 [facility] [id number] [place] [address] Apr, Dental examination Z01.20 [facility] [id number] [place] [address] Apr, COPD (chronic obstructive pulmonary disease) with chronic bronchitis J44.9 ; Screening for breast cancer Z12.31 ; Moderate episode of recurrent major depressive disorder F33.1 ; Primary insomnia F51.01 ; 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 ; Other specified disorders of teeth and supporting structures K08.89 and Encounter for immunization Z23 [place] [address] [address] Jan, Mixed simple and mucopurulent chronic bronchitis J41.8 ; Other iron deficiency anemia D50.8 ; Irritable bowel syndrome, unspecified type K58.9 and Stress incontinence N39.3 [place] [address] [address] Jan, Mixed simple and mucopurulent chronic bronchitis J41.8 ; Stress incontinence N39.3 ; Moderate single current episode of major depressive disorder F32.1 ; Irritable bowel syndrome, unspecified type K58.9 ; Other iron deficiency anemia D50.8 and Chronic intractable headache, unspecified headache type R51 [place] [address] [address] Dec, [place] [address] [address] Dec, [place] [id number] [place] [phone] 13 Dec, 2016 Acute left-sided thoracic back pain M54.6 ; Rib pain on left side R07.81 and Closed fracture of one rib of left side, initial encounter S22.32XA IMMUNIZATIONS No Known Immunizations SOCIAL HISTORY Never Assessed REASON FOR VISIT rash that started on her hands et now on her arms et chest. has been to urgent c [facility]qre in [facility] 2 times. has been on antibiotics et steroids...no relief. dayron wilson PLAN OF CARE Activity Details Follow Up prn Reason: VITAL SIGNS Height 62.5 in 2017-11-10 Weight 152.2 lbs 2017-11-10 Temperature 97.9 degrees Fahrenheit 2017-11-10 Heart Rate 84 bpm 2017-11-10 Respiratory Rate 20 2017-11-10 BMI 27.39 kg/m2 2017-11-10 Blood pressure systolic 114 mmHg 2017-11-10 Blood pressure diastolic 68 mmHg 2017-11-10 MEDICATIONS Medication Instructions Dosage Frequency Start Date End Date Duration Status Amitriptyline HCl 25 MG Orally Once a day 1 tablet 24h Jan, 90 days Active Docusate Sodium Active Dicyclomine HCl 20 MG TAKE ONE TABLET BY MOUTH FOUR TIMES DAILY 90 Active Fluoxetine HCl 40 MG Orally Once a day 1 capsule 24h Active Triamcinolone Acetonide 0.1 % Externally Twice a day 1 application to affected area 12h Oct, 7 days Active Xanax 0.5 MG Orally BID,PRN 1 tablet 28 days Active Proventil HFA 108 (90 Base) MCG/ACT Inhalation every 4 hrs 2 puffs as needed 4h Active RESULTS No Results PROCEDURES No Known procedures INSTRUCTIONS MEDICATIONS ADMINISTERED No Known Medications MEDICAL (GENERAL) HISTORY Type Description Date Medical History Depression Medical History Anxiety Medical History COPD Surgical History Hiatal hernia repair 2013 Surgical History hysterectomy, laparoscopically assisted complete 2013 Hospitalization History past surgery/child
--- OUTSIDE RECORDS SUMMARY | 2019-03-02 12:11 | XMS REPORT ---
Author Author SARA SOLORIO [facility] Address Unknown Care Team Providers Care Scientific Laboratory Supervisor Name Role Phone SARA SOLORIO Unavailable PROBLEMS Type Condition ICD9-CM Code YNA41-UB Code Onset Dates Condition Status SNOMED Code Problem Irritable bowel syndrome, unspecified type K58.9 Active 74052038 Problem Moderate episode of recurrent major depressive disorder F33.1 Active 50438567 Problem Moderate single current episode of major depressive disorder F32.1 Active 13178541 Problem Stress incontinence N39.3 Active 51264475 Problem Other iron deficiency anemia D50.8 Active 05235944 Problem Mixed simple and mucopurulent chronic bronchitis J41.8 Active 763624951 Problem Esophageal dysphagia R13.10 Active 26130567 Problem Tobacco use Z72.0 Active 308575817 Problem 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 [id number] [place] [address] November, Anxiety F41.9 and LLQ abdominal pain R10.32 [facility] [id number] [place] [address] Oct, Anxiety F41.9 [facility] [id number] [place] [address] Oct, Allergic contact dermatitis, unspecified trigger L23.9 [facility] [id number] [place] [address] Sep, [facility] [id number] [place] [address] Sep, [facility] [address] [place] [address] Aug, COPD (chronic obstructive pulmonary disease) with chronic bronchitis J44.9 ; Left lower quadrant pain R10.32 ; Anxiety F41.9 and Tobacco use Z72[address]0 [facility] [id number] [place] [address] Aug, [facility] [id number] [place] [address] Aug, [facility] [id number] [place] [address] Aug, Generalized abdominal pain R10.84 and Esophageal dysphagia R13.10 [facility] [id number] [place] [address] Jul, [facility] [id number] [place] [address] Jun, COPD (chronic obstructive pulmonary disease) with chronic bronchitis J44.9 [facility] [id number] [place] [address] May, [facility] [address] [place] [phone] May, Dental examination Z01.20 [facility] [address] [place] [address] Apr, Breast cancer screening Z12.31 [facility] [address] [place] [address] Apr, Dental examination Z01.20 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 ; Other specified disorders of teeth and supporting structures K08.89 and Encounter for immunization Z23 [place] [id number] [place] [address] Jan, Mixed simple and mucopurulent chronic bronchitis J41.8 ; Other iron deficiency anemia D50.8 ; Irritable bowel syndrome, unspecified type K58.9 and Stress incontinence N39.3 [place] [address] [address] Jan, Mixed simple and mucopurulent chronic bronchitis J41.8 ; Stress incontinence N39.3 ; Moderate single current episode of major depressive disorder F32.1 ; Irritable bowel syndrome, unspecified type K58.9 ; Other iron deficiency anemia D50.8 and Chronic intractable headache, unspecified headache type R51 [place] [id number] [place] [address] Dec, [place] [id number] [place] [address] Dec, [place] [id number] [place] [address] Dec, Acute left-sided thoracic back pain M54.6 ; Rib pain on left side R07.81 and Closed fracture of one rib of left side, initial encounter S22.32XA IMMUNIZATIONS No Known Immunizations SOCIAL HISTORY Never Assessed REASON FOR VISIT Denture check PLAN OF CARE Activity Details Follow Up Full dentures Reason:Gum check VITAL SIGNS Height 62.5 in 2017-06-05 Blood pressure systolic 135 mmHg 2017-06-05 Blood pressure diastolic 99 mmHg 2017-06-05 MEDICATIONS Medication Instructions Dosage Frequency Start Date End Date Duration Status Docusate Sodium Active Xanax 1 MG Orally TID PRN 1 tablet Active Fluoxetine HCl 40 MG Orally Once a day 1 capsule 24h Active Proventil HFA 108 (90 Base) MCG/ACT Inhalation every 4 hrs 2 puffs as needed 4h Active Dicyclomine HCl 20 mg Orally Four times a day 1 tablet 6h Active Amitriptyline HCl 25 MG Orally Once a day 1 tablet 24h Jan, 90 days Active RESULTS No Results PROCEDURES Procedure Date Ordered Result Body Site LTD ORAL EVALUATION - PROBLEM FOCUS Jun 05, 2017 Dental no charge Jun 05, 2017 Billing Notes on claim Jun 05, 2017 INSTRUCTIONS MEDICATIONS ADMINISTERED No Known Medications MEDICAL (GENERAL) HISTORY Type Description Date Medical History Depression Medical History Anxiety Medical History COPD Surgical History Hiatal hernia repair 2013 Surgical History hysterectomy, laparoscopically assisted complete 2013 Hospitalization History past surgery/child
--- OUTSIDE RECORDS SUMMARY | 2019-03-02 12:11 | XMS REPORT ---
Author Author JANES LOVELACE Organization [facility] Address [address] [place] [address] Care Team Providers Care Launch Commander [employer] Name Role Phone JANES LOVELACE Unavailable PROBLEMS Type Condition ICD9-CM Code TUB92-PB Code Onset Dates Condition Status SNOMED Code Problem Irritable bowel syndrome, unspecified type K58.9 Active 18803362 Problem Moderate episode of recurrent major depressive disorder F33.1 Active 48032706 Problem Moderate single current episode of major depressive disorder F32.1 Active 50477515 Problem Stress incontinence N39.3 Active 08536977 Problem Other iron deficiency anemia D50.8 Active 67398666 Problem Mixed simple and mucopurulent chronic bronchitis J41.8 Active 967973806 Problem Esophageal dysphagia R13.10 Active 19325425 Problem Tobacco use Z72.0 Active 400005297 Problem 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 Active 800521523 Problem Primary insomnia F51.01 Active 9897779 Problem Anxiety F41.9 Active 30162023 Problem COPD (chronic obstructive pulmonary disease) with chronic bronchitis J44.9 Active 395039013 ALLERGIES No Information ENCOUNTERS Encounter Location Date Diagnosis [facility] [id number] [place] [address] November, Anxiety F41.9 and LLQ abdominal pain R10.32 [facility] [id number] [place] [address] Oct, Anxiety F41.9 [facility] [id number] [place] [phone] Oct, Allergic contact dermatitis, unspecified trigger L23.9 [facility] [id number] [place] [address] Sep, [facility] [address] [place] [address] Sep, [facility] [id number] [place] [address] Aug, COPD (chronic obstructive pulmonary disease) with chronic bronchitis J44.9 ; Left lower quadrant pain R10.32 ; Anxiety F41.9 and Tobacco use Z72.0 [place] [address] [address] Aug, [facility] [address] [address] Aug, [facility] [address] [address] Aug, Generalized abdominal pain R10.84 and Esophageal dysphagia R13.10 [place] [id number] [place] [address] Jul, [facility] [id number] [place] [phone] Jun, COPD (chronic obstructive pulmonary disease) with chronic bronchitis J44.9 [facility] [id number] [place] [address] May, [facility] [id number] [place] [phone] May, Dental examination Z01.20 [facility] [id number] [place] [address] Apr, Breast cancer screening Z12.31 [facility] [id number] [place] [address] Apr, Dental examination Z01.20 [place] [id number] [place] [phone] Apr, COPD (chronic obstructive pulmonary disease) with chronic bronchitis J44.9 ; Screening for breast cancer Z12.31 ; Moderate episode of recurrent major depressive disorder F33.1 ; Primary insomnia F51.01 ; 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 ; Other specified disorders of teeth and supporting structures K08.89 and Encounter for immunization Z23 [place] [address] [address] Jan, Mixed simple and mucopurulent chronic bronchitis J41.8 ; Other iron deficiency anemia D50.8 ; Irritable bowel syndrome, unspecified type K58.9 and Stress incontinence N39.3 [place] [address] [address] Jan, Mixed simple and mucopurulent chronic bronchitis J41.8 ; Stress incontinence N39.3 ; Moderate single current episode of major depressive disorder F32.1 ; Irritable bowel syndrome, unspecified type K58.9 ; Other iron deficiency anemia D50.8 and Chronic intractable headache, unspecified headache type R51 [address] [address] Dec, [place] [address] [address] Dec, [address] [address] 13 Dec, 2016 Acute left-sided thoracic back pain M54.6 ; Rib pain on left side R07.81 and Closed fracture of one rib of left side, initial encounter S22.32XA IMMUNIZATIONS No Known Immunizations SOCIAL HISTORY Never Assessed REASON FOR VISIT CT result PLAN OF CARE VITAL SIGNS MEDICATIONS Medication Instructions Dosage Frequency Start Date End Date Duration Status Flagyl 500 mg Orally twice daily 1 tablet Sep, Sep, 07 days Active Cipro 500 mg Orally twice daily 1 tablet Sep, Sep, 07 days Active RESULTS No Results PROCEDURES No Known procedures INSTRUCTIONS MEDICATIONS ADMINISTERED No Known Medications MEDICAL (GENERAL) HISTORY Type Description Date Medical History Depression Medical History Anxiety Medical History COPD Surgical History Hiatal hernia repair 2013 Surgical History hysterectomy, laparoscopically assisted complete 2014 Hospitalization History past surgery/child
--- OUTSIDE RECORDS SUMMARY | 2019-03-02 12:11 | XMS REPORT ---
Author Author CHRISTOPHER RENTERIA [facility] Address [address] [place] [address] Care Team Providers Care Hand Cutter Name Role Phone CHRISTOPHER RENTERIA Unavailable PROBLEMS Type Condition ICD9-CM Code [id number] Code Onset Dates Condition Status SNOMED Code Problem Irritable bowel syndrome, unspecified type K58.9 Active 06109450 Problem Moderate episode of recurrent major depressive disorder F33.1 Active 48573367 Problem Moderate single current episode of major depressive disorder F32.1 Active 87356643 Problem Stress incontinence N39.3 Active 59952701 Problem Other iron deficiency anemia D50.8 Active 20331529 Problem Mixed simple and mucopurulent chronic bronchitis J41.8 Active 095715010 Problem Esophageal dysphagia R13.10 Active 36475512 Problem Tobacco use Z72.0 Active 241345097 Problem 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 Active 083279643 Problem Primary insomnia F51.01 Active 0825729 Problem Anxiety F41.9 Active 34969285 Problem COPD (chronic obstructive pulmonary disease) with chronic bronchitis J44.9 Active 520275970 ALLERGIES No Information ENCOUNTERS Encounter Location Date Diagnosis [facility] [id number] [place] [phone] Oct, Anxiety F41.9 [facility] [id number] [place] [address] Oct, Allergic contact dermatitis, unspecified trigger L23.9 [facility] [id number] [place] [phone] Sep, [facility] [id number] [place] [address] Sep, [facility] [id number] [place] [address] Aug, COPD (chronic obstructive pulmonary disease) with chronic bronchitis J44.9 ; Left lower quadrant pain R10.32 ; Anxiety F41.9 and Tobacco use Z72.0 [facility] [id number] [place] [address] Aug, [facility] [address] [address] Aug, [facility] [address] [address] Aug, Generalized abdominal pain R10.84 and Esophageal dysphagia R13.10 [place] [address] [address] Jul, [place] [address] [address] Jun, COPD (chronic obstructive pulmonary disease) with chronic bronchitis J44.9 [place] [id number] [place] [address] May, [facility] [address] [id number] May, Dental examination Z01.20 [place] [address] [address] Apr, Breast cancer screening Z12.[address] [address] Apr, Dental examination Z01.20 [place] [id number] [place] [address] 24 Apr, 2017 COPD (chronic obstructive pulmonary disease) with chronic bronchitis J44.9 ; Screening for breast cancer Z12.31 ; Moderate episode of recurrent major depressive disorder F33.1 ; Primary insomnia F51.01 ; 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 ; Other specified disorders of teeth and supporting structures K08.89 and Encounter for immunization Z23 [facility] [address] [place] [address] [place] [address] Jan, Mixed simple and mucopurulent chronic bronchitis J41.8 ; Other iron deficiency anemia D50.8 ; Irritable bowel syndrome, unspecified type K58.9 and Stress incontinence N39.3 [place] [id number] [place] [address] Jan, Mixed simple and mucopurulent chronic bronchitis J41.8 ; Stress incontinence N39.3 ; Moderate single current episode of major depressive disorder F32.1 ; Irritable bowel syndrome, unspecified type K58.9 ; Other iron deficiency anemia D50.8 and Chronic intractable headache, unspecified headache type R51 [place] [id number] [place] [address] Dec, [place] [id number] [place] [address] Dec, [place] [id number] [place] [address] Dec, Acute left-sided thoracic back pain M54.6 ; Rib pain on left side R07.81 and Closed fracture of one rib of left side, initial encounter S22.32XA IMMUNIZATIONS No Known Immunizations SOCIAL HISTORY Never Assessed REASON FOR VISIT Dental assessment PLAN OF CARE Activity Details Follow Up prn Reason: VITAL SIGNS MEDICATIONS Unknown Medications RESULTS No Results PROCEDURES Procedure Date Ordered Result Body Site SCREENING OF A PATIENT May 20, 2017 Billing Notes on claim May 20, 2017 INSTRUCTIONS MEDICATIONS ADMINISTERED No Known Medications MEDICAL (GENERAL) HISTORY Type Description Date Medical History Depression Medical History Anxiety Medical History COPD Surgical History Hiatal hernia repair 2013 Surgical History hysterectomy, laparoscopically assisted complete 2014 Hospitalization History past surgery/child
--- OUTSIDE RECORDS SUMMARY | 2019-03-02 12:12 | XMS REPORT ---
Author Author JANES LOVELACE Organization [facility] Address [address] [place] [address] Care Team Providers Care Pricing Director Name Role Phone JANES LOVELACE Unavailable PROBLEMS Type Condition ICD9-CM Code [id number] Code Onset Dates Condition Status SNOMED Code Problem Irritable bowel syndrome, unspecified type K58.9 Active 20933859 Problem Moderate episode of recurrent major depressive disorder F33.1 Active 59011323 Problem Moderate single current episode of major depressive disorder F32.1 Active 86683019 Problem Stress incontinence N39.3 Active 86559423 Problem Other iron deficiency anemia D50.8 Active 47278752 Problem Mixed simple and mucopurulent chronic bronchitis J41.8 Active 890878981 Problem Esophageal dysphagia R13.10 Active 45732865 Problem Tobacco use Z72.0 Active 651291149 Problem 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 [id number] [place] [address] November, Anxiety F41.9 and LLQ abdominal pain R10.32 [facility] [id number] [place] [address] Oct, Anxiety F41.9 [facility] [id number] [place] [address] Oct, Allergic contact dermatitis, unspecified trigger L23.9 [facility] [id number] [place] [phone] Sep, [facility] [address] [place] [address] Sep, [facility] [id number] [place] [address] Aug, COPD (chronic obstructive pulmonary disease) with chronic bronchitis J44.9 ; Left lower quadrant pain R10.32 ; Anxiety F41.9 and Tobacco use Z72.0 [place] [address] [address] Aug, [facility] [address] [address] Aug, [facility] [address] [address] Aug, Generalized abdominal pain R10.84 and Esophageal dysphagia R13.10 [place] [id number] [place] [address] Jul, [facility] [id number] [place] [phone] Jun, COPD (chronic obstructive pulmonary disease) with chronic bronchitis J44.9 [facility] [id number] [place] [address] May, [facility] [id number] [place] [phone] May, Dental examination Z01.20 [facility] [id number] [place] [address] Apr, Breast cancer screening Z12.31 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 ; Other specified disorders of teeth and supporting structures K08.89 and Encounter for immunization Z23 [place] [address] [address] Jan, Mixed simple and mucopurulent chronic bronchitis J41.8 ; Other iron deficiency anemia D50.8 ; Irritable bowel syndrome, unspecified type K58.9 and Stress incontinence N39.3 [place] [address] [address] Jan, Mixed simple and mucopurulent chronic bronchitis J41.8 ; Stress incontinence N39.3 ; Moderate single current episode of major depressive disorder F32.1 ; Irritable bowel syndrome, unspecified type K58.9 ; Other iron deficiency anemia D50.8 and Chronic intractable headache, unspecified headache type R51 [address] [address] Dec, [place] [address] [address] Dec, [address] [address] 13 Dec, 2016 Acute left-sided thoracic back pain M54.6 ; Rib pain on left side R07.81 and Closed fracture of one rib of left side, initial encounter S22.32XA IMMUNIZATIONS No Known Immunizations SOCIAL HISTORY Never Assessed REASON FOR VISIT Controlled Med Refill PLAN OF CARE VITAL SIGNS MEDICATIONS Medication Instructions Dosage Frequency Start Date End Date Duration Status Xanax 0.5 MG Orally BID 1 tablet 12h 28 days Active RESULTS No Results PROCEDURES No Known procedures INSTRUCTIONS MEDICATIONS ADMINISTERED No Known Medications MEDICAL (GENERAL) HISTORY Type Description Date Medical History Depression Medical History Anxiety Medical History COPD Surgical History Hiatal hernia repair 2013 Surgical History hysterectomy, laparoscopically assisted complete 2014 Hospitalization History past surgery/child
--- OUTSIDE RECORDS SUMMARY | 2019-03-02 12:12 | XMS REPORT ---
Author Author JANES LOVELACE Organization [facility] Address [address] [place] [address] Care Team Providers Care Ore Buyer Name Role Phone JANES LOVELACE Unavailable PROBLEMS Type Condition ICD9-CM Code [id number] Code Onset Dates Condition Status SNOMED Code Problem Irritable bowel syndrome, unspecified type K58.9 Active 44333395 Problem Moderate episode of recurrent major depressive disorder F33.1 Active 97961889 Problem Moderate single current episode of major depressive disorder F32.1 Active 01332828 Problem Stress incontinence N39.3 Active 04945077 Problem Other iron deficiency anemia D50.8 Active 74080867 Problem Mixed simple and mucopurulent chronic bronchitis J41.8 Active 962901843 Problem Esophageal dysphagia R13.10 Active 15787302 Problem Tobacco use Z72.0 Active 188275625 Problem 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 Active 106587772 Problem Primary insomnia F51.01 Active 4749881 Problem Anxiety F41.9 Active 36344932 Problem COPD (chronic obstructive pulmonary disease) with chronic bronchitis J44.9 Active 208285310 ALLERGIES No Information ENCOUNTERS Encounter Location Date Diagnosis [facility] [id number] [place] [address] November, Anxiety F41.9 and LLQ abdominal pain R10.32 [facility] [id number] [place] [address] Oct, Anxiety F41.9 [facility] [id number] [place] [address] Oct, Allergic contact dermatitis, unspecified trigger L23.9 [facility] [id number] [place] [address] Sep, [facility] [address] [place] [address] Sep, [facility] [id number] [place] [address] Aug, COPD (chronic obstructive pulmonary disease) with chronic bronchitis J44.9 ; Left lower quadrant pain R10.32 ; Anxiety F41.9 and Tobacco use Z72.0 [place] [address] [address] Aug, [facility] [address] [address] Aug, [facility] [address] [address] Aug, Generalized abdominal pain R10.84 and Esophageal dysphagia R13.10 [place] [id number] [place] [address] Jul, [facility] [id number] [place] [address] Jun, COPD (chronic obstructive pulmonary disease) with chronic bronchitis J44.9 [facility] [id number] [place] [address] May, [facility] [id number] [place] [phone] May, Dental examination Z01.20 [facility] [id number] [place] [address] Apr, Breast cancer screening Z12.31 [facility] [id number] [place] [address] Apr, Dental examination Z01.20 [place] [id number] [place] [address] Apr, COPD (chronic obstructive pulmonary disease) with chronic bronchitis J44.9 ; Screening for breast cancer Z12.31 ; Moderate episode of recurrent major depressive disorder F33.1 ; Primary insomnia F51.01 ; 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 ; Other specified disorders of teeth and supporting structures K08.89 and Encounter for immunization Z23 [place] [address] [address] Jan, Mixed simple and mucopurulent chronic bronchitis J41.8 ; Other iron deficiency anemia D50.8 ; Irritable bowel syndrome, unspecified type K58.9 and Stress incontinence N39.3 [place] [address] [address] Jan, Mixed simple and mucopurulent chronic bronchitis J41.8 ; Stress incontinence N39.3 ; Moderate single current episode of major depressive disorder F32.1 ; Irritable bowel syndrome, unspecified type K58.9 ; Other iron deficiency anemia D50.8 and Chronic intractable headache, unspecified headache type R51 [address] [address] Dec, [place] [address] [address] Dec, [address] [address] 13 Dec, 2016 Acute left-sided thoracic back [...]
--- OUTSIDE RECORDS SUMMARY | 2019-03-02 12:12 | XMS REPORT ---
Author Author DIANA ASHANTI Organization [facility] [place] Address [address] [place] [address] Care Team Providers Care Checking Clerk Name Role Phone CHUY ORTIZHANY Unavailable PROBLEMS Type Condition ICD9-CM Code IGG94-IU Code Onset Dates Condition Status SNOMED Code Problem Irritable bowel syndrome, unspecified type K58.9 Active 97374960 Problem Moderate episode of recurrent major depressive disorder F33.1 Active 54797828 Problem Moderate single current episode of major depressive disorder F32.1 Active 31996037 Problem Stress incontinence N39.3 Active 85598191 Problem Other iron deficiency anemia D50.8 Active 38746626 Problem Mixed simple and mucopurulent chronic bronchitis J41.8 Active 568480447 Problem Esophageal dysphagia R13.10 Active 14496671 Problem Tobacco use Z72.0 Active 148839801 Problem 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 Active 703758865 Problem Primary insomnia F51.01 Active 6270764 Problem Anxiety F41.9 Active 07150752 Problem COPD (chronic obstructive pulmonary disease) with chronic bronchitis J44.9 Active 783762405 ALLERGIES No Known Allergies ENCOUNTERS Encounter Location Date Diagnosis [facility] [place] [address] [place] [address] November, Anxiety F41.9 and LLQ abdominal pain R10.32 [facility] [place] [address] [place] [address] Oct, Anxiety F41.9 [facility] [address] [place] [address] Oct, Allergic contact dermatitis, unspecified trigger L23.9 [facility] [place] [address] [address] Sep, [facility] [place] [id number] [address] Sep, [facility] [place] [id number] [place] [address] Aug, COPD (chronic obstructive pulmonary disease) with chronic bronchitis J44.9 ; Left lower quadrant pain R10.32 ; Anxiety F41.9 and Tobacco use Z72.0 [facility] [place] [id number] [place] [phone] Aug, [facility] [place] [id number] [place] [address] Aug, [facility] [place] [id number] [place] [address] Aug, Generalized abdominal pain R10.84 and Esophageal dysphagia R13.10 [place] [id number] [place] [address] Jul, [facility] [place] [id number] [place] [address] Jun, COPD (chronic obstructive pulmonary disease) with chronic bronchitis J44.9 [facility] [place] [id number] [place] [address] May, [facility] [address] [place] [phone] May, Dental examination Z01.20 [facility] [place] [address] [place] [address] Apr, Breast cancer screening Z12.31 [facility] [place] [id number] [place] [address] Apr, Dental examination Z01.20 [facility] [place] [id number] [place] [address] Apr, COPD (chronic obstructive pulmonary disease) with chronic bronchitis J44.9 ; Screening for breast cancer Z12.31 ; Moderate episode of recurrent major depressive disorder F33.1 ; Primary insomnia F51.01 ; 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 ; Other specified disorders of teeth and supporting structures K08.89 and Encounter for immunization Z23 [place] [address] [address] 05 Jan, 2017 Mixed simple and mucopurulent chronic bronchitis J41.8 ; Other iron deficiency anemia D50.8 ; Irritable bowel syndrome, unspecified type K58.9 and Stress incontinence N39.3 [place] [address] [address] 03 Jan, 2017 Mixed simple and mucopurulent chronic bronchitis J41.8 ; Stress incontinence N39.3 ; Moderate single current episode of major depressive disorder F32.1 ; Irritable bowel syndrome, unspecified type K58.9 ; Other iron deficiency anemia D50.8 and Chronic intractable headache, unspecified headache type R51 [place] [address] [address] Dec, [place] [address] [address] 14 Dec, [address] [address] 13 Dec, 2016 Acute left-sided thoracic back pain M54.6 ; Rib pain on left side R07.81 and Closed fracture of one rib of left side, initial encounter S22.32XA IMMUNIZATIONS No Known Immunizations SOCIAL HISTORY Never Assessed REASON FOR VISIT Abdominal pain x couple weeks -- jim allen, patient states she had a hiatal hernia 2013 and it feel the same symptoms as before the surgery , patient has a question about Xanax PLAN OF CARE Activity Details Follow Up as scheduled Reason: VITAL SIGNS Height 62.5 in 2017-09-08 Weight 150.0 lbs 2017-09-08 Temperature 97.8 degrees Fahrenheit 2017-09-08 Heart Rate 70 bpm 2017-09-08 Respiratory Rate 18 2017-09-08 BMI 27.00 kg/m2 2017-09-08 Blood pressure systolic 128 mmHg 2017-09-08 Blood pressure diastolic 70 mmHg 2017-09-08 MEDICATIONS Medication Instructions Dosage Frequency Start Date End Date Duration Status Docusate Sodium Active Xanax 0.5 MG Orally BID 1 tablet 12h 28 days Active Fluoxetine HCl 40 MG Orally Once a day 1 capsule 24h Active Dicyclomine HCl 20 MG TAKE ONE TABLET BY MOUTH FOUR TIMES DAILY 90 Active Proventil HFA 108 (90 Base) MCG/ACT Inhalation every 4 hrs 2 puffs as needed 4h Active Amitriptyline HCl 25 MG Orally Once a day 1 tablet 24h Jan, 90 days Active RESULTS No Results PROCEDURES Procedure Date Ordered Result Body Site COMPREHEN METABOLIC PANEL Sep 08, 2017 COMPLETE CBC W/AUTO DIFF WBC Sep 08, 2017 VENIPUNCT, ROUTINE* Sep 08, 2017 INSTRUCTIONS MEDICATIONS ADMINISTERED No Known Medications MEDICAL (GENERAL) HISTORY Type Description Date Medical History Depression Medical History Anxiety Medical History COPD Surgical History Hiatal hernia repair 2013 Surgical History hysterectomy, laparoscopically assisted complete 2013 Hospitalization History past surgery/child
--- OUTSIDE RECORDS SUMMARY | 2019-03-02 12:12 | XMS REPORT ---
Author Author JANES LOVELACE Organization [facility] Address [address] [place] [address] Care Team Providers Care Marketing Content Specialist Name Role Phone JANES LOVELACE Unavailable PROBLEMS Type Condition ICD9-CM Code [id number] Code Onset Dates Condition Status SNOMED Code Problem Irritable bowel syndrome, unspecified type K58.9 Active 34094666 Problem Moderate episode of recurrent major depressive disorder F33.1 Active 96193113 Problem Moderate single current episode of major depressive disorder F32.1 Active 73184705 Problem Stress incontinence N39.3 Active 57091682 Problem Other iron deficiency anemia D50.8 Active 92689863 Problem Mixed simple and mucopurulent chronic bronchitis J41.8 Active 482089532 Problem Esophageal dysphagia R13.10 Active 04574863 Problem Tobacco use Z72.0 Active 119111056 Problem 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 Active 527972099 Problem Primary insomnia F51.01 Active 6858736 Problem Anxiety F41.9 Active 09491428 Problem COPD (chronic obstructive pulmonary disease) with chronic bronchitis J44.9 Active 197809423 ALLERGIES No Information ENCOUNTERS Encounter Location Date Diagnosis [facility] [id number] [place] [phone] November, Anxiety F41.9 and LLQ abdominal pain R10.32 [facility] [id number] [place] [phone] Oct, Anxiety F41.9 [facility] [id number] [place] [phone] Oct, Allergic contact dermatitis, unspecified trigger L23.9 [facility] [id number] [place] [phone] Sep, [facility] [address] [place] [address] Sep, [facility] [id number] [place] [phone] Aug, COPD (chronic obstructive pulmonary disease) with chronic bronchitis J44.9 ; Left lower quadrant pain R10.32 ; Anxiety F41.9 and Tobacco use Z72.0 [place] [address] [address] Aug, [facility] [address] [address] Aug, [facility] [address] [address] Aug, Generalized abdominal pain R10.84 and Esophageal dysphagia R13.10 [place] [id number] [place] [phone] Jul, [facility] [id number] [place] [phone] Jun, COPD (chronic obstructive pulmonary disease) with chronic bronchitis J44.9 [facility] [id number] [place] [phone] May, [facility] [id number] [place] [phone] May, Dental examination Z01.20 [facility] [id number] [place] [phone] Apr, Breast cancer screening Z12.31 [facility] [id number] [place] [phone] Apr, Dental examination Z01.20 [place] [id number] [place] [phone] Apr, COPD (chronic obstructive pulmonary disease) with chronic bronchitis J44.9 ; Screening for breast cancer Z12.31 ; Moderate episode of recurrent major depressive disorder F33.1 ; Primary insomnia F51.01 ; 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 ; Other specified disorders of teeth and supporting structures K08.89 and Encounter for immunization Z23 [place] [address] [address] 05 Jan, 2017 Mixed simple and mucopurulent chronic bronchitis J41.8 ; Other iron deficiency anemia D50.8 ; Irritable bowel syndrome, unspecified type K58.9 and Stress incontinence N39.3 [place] [address] [address] Jan, Mixed simple and mucopurulent chronic bronchitis J41.8 ; Stress incontinence N39.3 ; Moderate single current episode of major depressive disorder F32.1 ; Irritable bowel syndrome, unspecified type K58.9 ; Other iron deficiency anemia D50.8 and Chronic intractable headache, unspecified headache type R51 [address] [address] Dec, [place] [address] [address] 14 Dec, [address] [address] 13 Dec, 2016 Acute left-sided thoracic back pain M54.6 ; Rib pain on left side R07.81 and Closed fracture of one rib of left side, initial encounter S22.32XA IMMUNIZATIONS No Known Immunizations SOCIAL HISTORY Never Assessed REASON FOR VISIT PFT-[facility] EPIC SPECIALIST/MINE WEDGE SAWYER PLAN OF CARE Activity Details Follow Up prn Reason: VITAL SIGNS MEDICATIONS No Known Medications RESULTS No Results PROCEDURES Procedure Date Ordered Result Body Site PULMONARY FUNCTION TEST (IN-HOUSE) 2017-07-17 N/A NEB/MDFani DEMO Jul 17, 2017 SPRIOMETRY CHALLENGE Jul 17, 2017 SPIROMETRY Jul 17, 2017 INSTRUCTIONS MEDICATIONS ADMINISTERED No Known Medications MEDICAL (GENERAL) HISTORY Type Description Date Medical History Depression Medical History Anxiety Medical History COPD Surgical History Hiatal hernia repair 2013 Surgical History hysterectomy, laparoscopically assisted complete 2013 Hospitalization History past surgery/child
--- OUTSIDE RECORDS SUMMARY | 2019-03-02 12:12 | XMS REPORT | Continuity of Care Document ---
Author Organization Unknown Address Unknown Phone Unavailable Allergies There is no data. Medications There is no data. Problems There is no data. Procedures There is no data. Results Test Result Range CBC - 09/08/17 15:01 WHITE BLOOD CELL COUNT 6.5 Thousand/uL 3.8-10.8 RED BLOOD CELL COUNT 5.01 Million/uL 3.80-5.10 HEMOGLOBIN 16.6 g/dL 11.7-15.5 HEMATOCRIT 49.0 % 35.0-45.0 MCV 97.8 fL 80.0-100.0 MCH 33.1 pg 27.0-33.0 MCHC 33.9 g/dL 32.0-36.0 RDW 11.8 % 11.0-15.0 PLATELET COUNT 340 Thousand/uL 140-400 MPV 8.6 fL 7.5-12.5 ABSOLUTE NEUTROPHILS 3699 cells/uL 8953-6451 ABSOLUTE LYMPHOCYTES 2113 cells/uL 850-3900 ABSOLUTE MONOCYTES 488 cells/uL 200-950 ABSOLUTE EOSINOPHILS 169 cells/uL 15-500 ABSOLUTE BASOPHILS 33 cells/uL 0-200 NEUTROPHILS 56.9 % NRG LYMPHOCYTES 32.5 % NRG MONOCYTES 7.5 % NRG EOSINOPHILS 2.6 % NRG BASOPHILS 0.5 % NRG PDM - 09 PANEL (PROFILE 1) - 10/23/18 10:30 Creatinine 78.3 mg/dL > or=20.0 pH 7.15 4.5 - 9.0 Oxidant NEGATIVE mcg/mL <200 Amphetamines NEGATIVE ng/mL <500 medMATCH Amphetamines CONSISTENT NRG Benzodiazepines POSITIVE ng/mL <100 Marijuana Metabolite POSITIVE ng/mL <20 Cocaine Metabolite NEGATIVE ng/mL <150 medMATCH Cocaine Metab CONSISTENT NRG Opiates NEGATIVE ng/mL <100 medMATCH Opiates CONSISTENT NRG Oxycodone NEGATIVE ng/mL <100 medMATCH Oxycodone CONSISTENT NRG COMMENT NRG Alphahydroxyalprazolam 98 ng/mL <25 medMATCH aOH alprazolam INCONSISTENT NRG Alphahydroxymidazolam NEGATIVE ng/mL <50 medMATCH aOH midazolam CONSISTENT NRG Alphahydroxytriazolam NEGATIVE ng/mL <50 medMATCH aOH triazolam CONSISTENT NRG Aminoclonazepam NEGATIVE ng/mL <25 medMATCH Aminoclonazepam CONSISTENT NRG Hydroxyethylflurazepam NEGATIVE ng/mL <50 medMATCH OH,Et flurazepam CONSISTENT NRG Lorazepam NEGATIVE ng/mL <50 medMATCH Lorazepam CONSISTENT NRG Nordiazepam NEGATIVE ng/mL <50 medMATCH Nordiazepam CONSISTENT NRG Oxazepam NEGATIVE ng/mL <50 medMATCH Oxazepam CONSISTENT NRG Temazepam NEGATIVE ng/mL <50 medMATCH Temazepam CONSISTENT NRG Marijuana Metabolite 58 ng/mL <5 medMATCH Marijuana Metab INCONSISTENT NRG Barbiturates NEGATIVE ng/mL <300 medMATCH Barbiturates CONSISTENT NRG Methadone Metabolite NEGATIVE ng/mL <100 medMATCH Methadone Metab CONSISTENT NRG Phencyclidine NEGATIVE ng/mL <25 medMATCH Phencyclidine CONSISTENT NRG Encounters ACCT No. Visit Date/Time Discharge Status Pt. Type Provider Facility Loc./Unit Complaint [id number] 02/04/2019 11:00:00 02/04/2019 23:59:59 [facility] Outpatient MICHELLE LOZANO [facility] [id number] 10/23/2018 10:15:00 Document Registration [id number] 09/08/2017 13:40:00 Document Registration
[2019-03-02] MEDS ORDERED: LACTATED RINGERS 1,000 ML IV STA (12:24)
[2019-03-02 12:26] VITALS: BP 135/85
[2019-03-02] MEDS ORDERED: HURRICAINE EXT TUBE (BENZOCAINE) XX PRN (12:30)
[2019-03-02] MEDS ORDERED: LIDOCAINE PF 2% 5 ML (XYLOCAINE) VIAL ONE (12:36)
[2019-03-02] MEDS ORDERED: proPOfol 200 MG/20 ML (DIPRIVAN) VIAL IV ONE (12:36)
[2019-03-02] MEDS ORDERED: MIDAZOLAM 2 MG/2 ML (VERSED) VIAL ONE (12:37)
--- NOTE | 2019-03-02 12:41 | Progress Note-Pre Operative ---
Pre-Operative Progress Note H&P Reviewed The H&P was reviewed, patient examined and no changes noted. Date Seen by Provider: Mar 02, 2019 Time Seen by Provider: 12:41 Date H&P Reviewed: Mar 02, 2019 Time H&P Reviewed: 12:41 Pre-Operative Diagnosis: hx alston's, epigastric abd pain TEMITOPE AJ DO Mar 02, 2019 12:41
--- NOTE | 2019-03-02 13:07 | Progress Note-Post Operative ---
Post-Operative Progess Note Surgeon (s)/Photographic Intelligence Officer (s) Surgeon TEMITOPE AJ DO Photographic Intelligence Officer: na Pre-Operative Diagnosis hx alston's, epigastric abd pain Post-Operative Diagnosis hiatal herni, slight gastritis Procedure & Operative Findings Date of Procedure 03/02/19 Procedure Performed/Findings egd c biopsies Anesthesia Type per firer powerhouse Estimated Blood Loss Estimated blood loss (mL): na Specimens/Packing Specimens Removed antrum, body, ge TEMITOPE AJ DO Mar 02, 2019 13:06
--- NOTE | 2019-03-02 13:08 | Discharge Inst-Simple/Standard ---
Discharge Inst-Standard Patient Instructions/Follow Up Plan of Care/Instructions/FU: 2 weeks Christelle Activity as Tolerated: Yes Discharge Diet: Regular Diet TEMITOPE AJ DO Mar 02, 2019 13:08
[2019-03-02 13:10] VITALS: BP 152/77
[2019-03-02 13:15] VITALS: BP 150/83
[2019-03-02 13:45] VITALS: BP 143/79
[2019-03-02 13:51] VITALS: BP 143/79
--- NOTE | 2019-03-02 14:06 | Anesthesia-General Post-Op ---
General Patient Condition Mental Status/LOC: Same as Preop Cardiovascular: Satisfactory Nausea/Vomiting: Absent Respiratory: Satisfactory Pain: Controlled Complications: Absent Post Op Complications Complications None Follow Up Care/Instructions Patient Instructions None needed. Anesthesia/Patient Condition Patient Condition Patient was seen after the procedure and she was doing well, no complaints, stable vital signs, no apparent adverse anesthesia problems. CUBA SINCLAIR DO Mar 02, 2019 14:06
--- NOTE | 2019-03-02 22:33 | OPERATIVE REPORT ---
DATE OF SERVICE: 03/02/2019 PREOPERATIVE DIAGNOSES: Epigastric abdominal pain, history of Helicobacter pylori, history of Pope's esophagus. POSTOPERATIVE DIAGNOSES: Hiatal hernia, slight gastritis. PROCEDURE: EGD with biopsies. SURGEON: Temitope Bourgeois DO ANESTHESIA: Per PHARMACY INNOVATION ASSISTANT. ESTIMATED BLOOD LOSS: None. COMPLICATIONS: None. INDICATIONS: The patient is a 63-year-old female, who understands risks and benefits of procedure and wished to proceed with procedure with diagnoses as above. She understands and wishes to proceed. Consent was signed in the chart. DESCRIPTION OF PROCEDURE: The patient was taken to the endoscopy suite, placed in left lateral recumbent position. Timeout was performed. Scope was inserted in mouth, down the esophagus, stomach and duodenum without difficulty. There were no polyps, masses or ulcerations within the duodenum. Scope was slowly retracted back into the stomach where it was further insufflated. Erythematous changes present consistent with gastritis. Biopsy of the antrum was obtained. Biopsy of the body was obtained. Scope was retroflexed noting a small hiatal hernia, no other pathology noted. Scope was returned to its normal position, slowly withdrawn to the distal esophagus. No polyps, masses or ulcerations. Slight erythematous changes. Multiple biopsies were obtained. Scope was then slowly retracted back until completely removed. The patient tolerated procedure well without any complications. She was taken to recovery room in stable condition. RECOMMENDATIONS: The patient is to continue on current regimen. Further recommendations pending results of pathology. Job ID: [id number] DocumentID: [id number] Dictated Date: 03/02/2019 13:10:36 Chair Frame Builder Date: 03/02/2019 22:32:10 Dictated By: TEMITOPE BOURGEOIS DO
== END 2019-03-02 13:53 | disposition home or self-care (01) ==
LOC: ENDO 12:06
PROVIDERS: ATTEND Surgery
DX: K29.70 Gastritis, unspecified, without bleeding (principal); K44.9 Diaphragmatic hernia without obstruction or gangrene; K21.9 Gastro-esophageal reflux disease without esophagitis; K31.89 Other diseases of stomach and duodenum; J44.9 Chronic obstructive pulmonary disease, unspecified; F41.9 Anxiety disorder, unspecified; F32.9 Major depressive disorder, single episode, unspecified; F17.210 Nicotine dependence, cigarettes, uncomplicated; Z87.19 Personal history of other diseases of the digestive system; Z86.010 Personal history of colon polyps; Z79.899 Other long term (current) drug therapy